=== PATIENT | female | born 1990 | race Hispanic/Latino ===

== ENCOUNTER 2022-04-13 21:00 | Emergency (ER) | payer SELFPAY ==
--- OUTSIDE RECORDS SUMMARY | 2022-04-13 21:05 | XMS REPORT | Continuity of Care Document ---
:1990 Author Organization [facility] t Address [address] [place] [address] Care Team Providers Name Role Phone Hector Zepeda MD, [facility] Primary Care Physician [phone] Ramireddy_S Attending Clinician Unavailable [email or web address] Attending Clinician Unavailable Lemming_S Attending Clinician Unavailable Ramireddy_S Admitting Clinician Unavailable [email or web address]_WAGDNU Admitting Clinician Unavailable Lemming_S Admitting Clinician Unavailable Payers Payer Name Policy Type Policy Number Effective Date Expiration Date S ource [employer] [id number] 2021 INSURANCE - UNITED 00:00:00 HEALTHCARE - CHOICE PLUS (PPO) [facility] [id number] 2020 (PPO) 00:00:00 [facility] [id number] [facility] 4 (PPO) Problems Condition Condition Condition Status Onset Resolution Last Treating Co mments Source Name Details Category Date Date Treatment Clinician Date Anxiety Anxiety Problem Active [facility] 7- Family 00:00: Practic 00 e Acute Acute Problem Active [facility] sinusitis Sinusitis 09-19 Fami ly 00:00: Practic 00 e Vaginitis Vaginitis Problem Active Kian klever 7-26 Family 00:00: Practic 00 e Recurrent Recurrent Problem Active Kian ernst candidiasi Candidiasi 5-07 Fa augustus s of s of 00:00: Practic vagina Vagina 00 e Obesity Obesity Problem Active 2019-02 [facility] 1-25 Family 00:00: Practic 00 e Chronic Chronic Disease Active Methodi midline midline 2-19 st low back low back 00:00: Hospit a pain pain 00 l without without sciatica sciatica Palpitatio Palpitatio Disease Active M ethodi ns ns 3-21 st 00:00: Hospita 00 l Anxiety Anxiety Problem Active [place] state State 8-07 Family 00:00: Practic 00 e Allergies, Adverse Reactions, Alerts Allergy Allergy Status Severity Reaction(s) Onset Inactive Treating Comm ents Source Name Type Date Date Clinician Glucosam Propensi Active Anaphylaxis Soft M ethodi ine ty to 07-[address] adverse 00:00: crawfish Hospita reaction 00 l s to drug Codeine Drug Active Anxiety PT [facility] 00 THIS Center MEDICATIO N IT MAKES HER DEPRESSED Shellfis Drug Active [facility]aphylaxis [facility] 00[facility] Medical ng 00 Center Products Codeine Propensi Active Anxiety PT STATES Met hodi ty to 02-[address] adverse 00:00: TAKING Hospita reaction 00 THIS l s to MEDICATIO drug N IT MAKES HER DEPRESSED Depressio n Shellfis Propensi Active Anaphylaxis M ethodi h ty to 02-27 st Containi adverse 00:00: Hospita ng reaction 00 l Products s to drug CODEINE Allergy Active 2013-02 [facility] PHOSPHAT to 03-22 Family E substanc 00:00: Practic e 00 e Family History Family Member Diagnosis Comments Start Date Stop Date Source Natural father Diabetes [facility] Natural father Alcohol abuse [facility] Natural father Diabetes [facility] Maternal aunt Bipolar disorder [facility] Maternal grandmother Bipolar disorder [facility] Paternal grandmother defects C [facility] Natural brother Asthma [facility] Maternal grandfather Cancer [facility] Maternal grandfather Colon cancer [facility] Maternal grandfather Melanoma [facility] Social History Social Habit Start Date Stop Date Quantity Comments Source Alcohol intake 2017-05-07 2017-05-07 Current Confucianism 00:00:00 00:00:00 non-drinker of Hospital alcohol (finding) Tobacco use and 2016-02-28 2016-02-[address] [facility] kes exposure 00:00:00 00:00:00 Medical Center Sex Assigned At [birth year] Confucianism 00:00:00 00:00:00 Hospital Smoking Status Start Date Stop Date Source Never smoked tobacco Confucianism [facility] Former smoker 2016-02-28 00:00:00 2016-02-28 00:00:00 [facility] Medications Ordered Filled Start Stop Current Ordering Indication Dosage Frequency Signature Comments Components Source Medication Medication Date Date Medication? Clinician (SIG) Name Name Evan Gordon 2020-02 No 1capsul Q4H Evan Tejeda mg-300 mg-300 2-10 e(s) 50 mg-300 Family mg-40 mg mg-40 mg 00:00: mg-40 mg P ractic capsule capsule 00 capsule e Take 1 Take 1 Take 1 capsule capsule capsule every 4 every 4 every 4 hours by hours by hours by oral route oral route oral route as needed. as needed. as needed. Fioricet Jeff Gordon 2020-02 No 1capsul Q4H Evan Tejeda mg-300 mg-300 2-10 e(s) 50 mg-300 Family mg-40 mg mg-40 mg 00:00: mg-40 mg P ractic capsule capsule 00 capsule e Take 1 Take 1 Take 1 capsule capsule capsule every 4 every 4 every 4 hours by hours by hours by oral route oral route oral route as needed. as needed. as needed. Arshoricet Jeff Gordon 2020-02 No 1capsul Q4H Marlinet Nikhil mg-300 mg-300 2-10 e(s) 50 mg-300 Family mg-40 mg mg-40 mg 00:00: mg-40 mg P ractic capsule capsule 00 capsule e Take 1 Take 1 Take 1 capsule capsule capsule every 4 every 4 every 4 hours by hours by hours by oral route oral route oral route as needed. as needed. as needed. Fioricet 50 Arshoricet 50 2020-02 No 1capsul Q4H Evan Tejeda mg-300 mg-300 2-10 e(s) 50 mg-300 Family mg-40 mg mg-40 mg 00:00: mg-40 mg P ractic capsule capsule 00 capsule e Take 1 Take 1 Take 1 capsule capsule capsule every 4 every 4 every 4 hours by hours by hours by oral route oral route oral route as needed. as needed. as needed. Fioricet 50 Fioricet 50 2020-02 No 1capsul Q4H Fioricet [place] mg-300 mg-300 2-10 e(s) 50 mg-300 Family mg-40 mg mg-40 mg 00:00: mg-40 mg P ractic capsule capsule 00 capsule e Take 1 Take 1 Take 1 capsule capsule capsule every 4 every 4 every 4 hours by hours by hours by oral route oral route oral route as needed. as needed. as needed. multivitami Yes 1{tbl} QD Take 1 Me thodi n with 2-[address] minerals 14:11: mouth Hospita tablet 34 daily. l PNV WITH 2016-02 Yes 1{tbl} QD Take 1 [facility] CA,NO.[facility]/IR 1-01 tablet by Christie frausto ON/FA 12:12: mouth Medical ( 38 daily. Center MULTIVITAMI N) Tab albuterol albuterol No 2puff(s Q4H albuterol [place] sulfate HFA sulfate HFA ) sulfate Family 90 90 HFA 90 Practic mcg/actuati mcg/actuati mcg/actuat e on aerosol on aerosol ion inhaler inhaler aerosol Inhale 2 Inhale 2 inhaler puffs every puffs every Inhale 2 4 hours by 4 hours by puffs inhalation inhalation every 4 route. route. hours by inhalation route. alprazolam alprazolam No alprazolam [facility] 0.5 mg 0.5 mg 0.5 mg Family tablet TAKE tablet TAKE tablet Practic ONE-HALF ONE-HALF TAKE e TABLET TO TABLET TO ONE-HALF ONE (1) ONE (1) TABLET TO TABLET BY TABLET BY ONE (1) MOUTH EVERY MOUTH EVERY TABLET BY DAY DAY MOUTH NEEDED FOR NEEDED FOR EVERY DAY ANXIETY ANXIETY NEEDED FOR ANXIETY clotrimazol clotrimazol No clotrimazo [facility] e-betametha e-betametha le-betamet Family sone 1 sone 1 hasone 1 Practic %-0.05 % %-0.05 % %-0.05 % e topical topical topical cream APPLY cream APPLY cream TO THE TO THE APPLY TO AFFECTED AFFECTED THE AND AND AFFECTED SURROUNDING SURROUNDING AND AREAS OF AREAS OF SURROUNDIN SKIN BY SKIN BY G AREAS OF TOPICAL TOPICAL SKIN BY ROUTE 2 ROUTE 2 TOPICAL TIMES PER TIMES PER ROUTE 2 DAY IN THE DAY IN THE TIMES PER MORNING AND MORNING AND DAY IN THE EVENING FOR EVENING FOR MORNING 2 WEEKS 2 WEEKS AND EVENING FOR 2 WEEKS Dulera 200 Dulera 200 No Dulera 200 [facility] mcg-5 mcg-5 mcg-5 Family mcg/actuati mcg/actuati mcg/actuat Practic on HFA on HFA ion HFA e aerosol aerosol aerosol inhaler inhaler inhaler Inhale 2 Inhale 2 Inhale 2 puffs twice puffs twice puffs a day by a day by twice a inhalation inhalation day by route. route. inhalation route. etonogestre etonogestre No etonogestr [facility] l 0.12 l 0.12 el 0.12 Family mg-ethinyl mg-ethinyl mg-ethinyl Practic estradiol estradiol estradiol e 0.015 mg/24 0.015 mg/24 0.015 hr vaginal hr vaginal mg/24 hr ring ring vaginal ring hydroxyzine hydroxyzine No hydroxyzin [facility] HCl 25 mg HCl 25 mg e HCl 25 F amily tablet Take tablet Take mg tablet Practic 1 tablet 3 1 tablet 3 Take 1 e times a day times a day tablet 3 by oral by oral times a route as route as day by needed for needed for oral route 10 days. 10 days. as needed for 10 days. Symbicort Symbicort No 2puff(s BID Symbicort [facility] 160 mcg-4.5 160 mcg-4.5 ) 160 F amily mcg/actuati mcg/actuati mcg-4.5 Practic on HFA on HFA mcg/actuat e aerosol aerosol ion HFA inhaler inhaler aerosol Inhale 2 Inhale 2 inhaler puffs twice puffs twice Inhale 2 a day by a day by puffs inhalation inhalation twice a route. route. day by inhalation route. Tubersol 5 Tubersol 5 No .1mL Q1D Tubersol 5 [facility] tub. tub. tub. Family unit/0.1 mL unit/0.1 mL unit/0.1 Practic intradermal intradermal mL e injection injection intraderma solution solution l Inject 0.1 Inject 0.1 injection mL every mL every solution day by day by Inject 0.1 intradermal intradermal mL every route. route. day by intraderma l route. albuterol albuterol No 2puff(s Q4H albuterol [place] sulfate HFA sulfate HFA ) sulfate Family 90 90 HFA 90 Practic mcg/actuati mcg/actuati mcg/actuat e on aerosol on aerosol ion inhaler inhaler aerosol Inhale 2 Inhale 2 inhaler puffs every puffs every Inhale 2 4 hours by 4 hours by puffs inhalation inhalation every 4 route. route. hours by inhalation route. alprazolam alprazolam No alprazolam [facility] 0.5 mg 0.5 mg 0.5 mg Family tablet TAKE tablet TAKE tablet Practic ONE-HALF ONE-HALF TAKE e TABLET TO TABLET TO ONE-HALF ONE (1) ONE (1) TABLET TO TABLET BY TABLET BY ONE (1) MOUTH EVERY MOUTH EVERY TABLET BY DAY DAY MOUTH NEEDED FOR NEEDED FOR EVERY DAY ANXIETY ANXIETY NEEDED FOR ANXIETY clotrimazol clotrimazol No clotrimazo [facility] e-betametha e-betametha le-betamet Family sone 1 sone 1 hasone 1 Practic %-0.05 % %-0.05 % %-0.05 % e topical topical topical cream APPLY cream APPLY cream TO THE TO THE APPLY TO AFFECTED AFFECTED THE AND AND AFFECTED SURROUNDING SURROUNDING AND AREAS OF AREAS OF SURROUNDIN SKIN BY SKIN BY G AREAS OF TOPICAL TOPICAL SKIN BY ROUTE 2 ROUTE 2 TOPICAL TIMES PER TIMES PER ROUTE 2 DAY IN THE DAY IN THE TIMES PER MORNING AND MORNING AND DAY IN THE EVENING FOR EVENING FOR MORNING 2 WEEKS 2 WEEKS AND EVENING FOR 2 WEEKS Dulera 200 Dulera 200 No Dulera 200 [facility] mcg-5 mcg-5 mcg-5 Family mcg/actuati mcg/actuati mcg/actuat Practic on HFA on HFA ion HFA e aerosol aerosol aerosol inhaler inhaler inhaler Inhale 2 Inhale 2 Inhale 2 puffs twice puffs twice puffs a day by a day by twice a inhalation inhalation day by route. route. inhalation route. etonogestre etonogestre No etonogestr [facility] l 0.12 l 0.12 el 0.12 Family mg-ethinyl mg-ethinyl mg-ethinyl Practic estradiol estradiol estradiol e 0.015 mg/24 0.015 mg/24 0.015 hr vaginal hr vaginal mg/24 hr ring ring vaginal ring hydroxyzine hydroxyzine No hydroxyzin [facility] HCl 25 mg HCl 25 mg e HCl 25 F amily tablet Take tablet Take mg tablet Practic 1 tablet 3 1 tablet 3 Take 1 e times a day times a day tablet 3 by oral by oral times a route as route as day by needed for needed for oral route 10 days. 10 days. as needed for 10 days. Symbicort Symbicort No 2puff(s BID Symbicort [facility] 160 mcg-4.5 160 mcg-4.5 ) 160 F amily mcg/actuati mcg/actuati mcg-4.5 Practic on HFA on HFA mcg/actuat e aerosol aerosol ion HFA inhaler inhaler aerosol Inhale 2 Inhale 2 inhaler puffs twice puffs twice Inhale 2 a day by a day by puffs inhalation inhalation twice a route. route. day by inhalation route. Tubersol 5 Tubersol 5 No .1mL Q1D Tubersol 5 [facility] tub. tub. tub. Family unit/0.1 mL unit/0.1 mL unit/0.1 Practic intradermal intradermal mL e injection injection intraderma solution solution l Inject 0.1 Inject 0.1 injection mL every mL every solution day by day by Inject 0.1 intradermal intradermal mL every route. route. day by intraderma l route. albuterol albuterol No 2puff(s Q4H albuterol [facility] sulfate HFA sulfate HFA ) sulfate Family 90 90 HFA 90 Practic mcg/actuati mcg/actuati mcg/actuat e on aerosol on aerosol ion inhaler inhaler aerosol Inhale 2 Inhale 2 inhaler puffs every puffs every Inhale 2 4 hours by 4 hours by puffs inhalation inhalation every 4 route. route. hours by inhalation route. alprazolam alprazolam No alprazolam [facility] 0.5 mg 0.5 mg 0.5 mg Family tablet TAKE tablet TAKE tablet Practic ONE-HALF ONE-HALF TAKE e TABLET TO TABLET TO ONE-HALF ONE (1) ONE (1) TABLET TO TABLET BY TABLET BY ONE (1) MOUTH EVERY MOUTH EVERY TABLET BY DAY DAY MOUTH NEEDED FOR NEEDED FOR EVERY DAY ANXIETY ANXIETY NEEDED FOR ANXIETY Diflucan Diflucan No 1 Diflucan Kian klever 150 mg 150 mg 150 mg Family tablet Take tablet Take tablet Practic 1 tablet by 1 tablet by Take 1 e oral route oral route tablet by as needed. as needed. oral route as needed. Dulera 200 Dulera 200 No Dulera 200 [facility] mcg-5 mcg-5 mcg-5 Family mcg/actuati mcg/actuati mcg/actuat Practic on HFA on HFA ion HFA e aerosol aerosol aerosol inhaler inhaler inhaler Inhale 2 Inhale 2 Inhale 2 puffs twice puffs twice puffs a day by a day by twice a inhalation inhalation day by route. route. inhalation route. etonogestre etonogestre No etonogestr [facility] l 0.12 l 0.12 el 0.12 Family mg-ethinyl mg-ethinyl mg-ethinyl Practic estradiol estradiol estradiol e 0.015 mg/24 0.015 mg/24 0.015 hr vaginal hr vaginal mg/24 hr ring ring vaginal ring Medrol Medrol No Medrol [place] (Gianni) 4 mg (Gianni) 4 mg (Gainni) 4 mg Family tablets in tablets in tablets in Practic a dose pack a dose pack a dose e use as use as pack use directed directed as directed Symbicort Symbicort No 2puff(s BID Symbicort [facility] 160 mcg-4.5 160 mcg-4.5 ) 160 F amily mcg/actuati mcg/actuati mcg-4.5 Practic on HFA on HFA mcg/actuat e aerosol aerosol ion HFA inhaler inhaler aerosol Inhale 2 Inhale 2 inhaler puffs twice puffs twice Inhale 2 a day by a day by puffs inhalation inhalation twice a route. route. day by inhalation route. albuterol albuterol No 2puff(s Q4H albuterol [place] sulfate HFA sulfate HFA ) sulfate Family 90 90 HFA 90 Practic mcg/actuati mcg/actuati mcg/actuat e on aerosol on aerosol ion inhaler inhaler aerosol Inhale 2 Inhale 2 inhaler puffs every puffs every Inhale 2 4 hours by 4 hours by puffs inhalation inhalation every 4 route as route as hours by needed. needed. inhalation route as needed. alprazolam alprazolam No alprazolam [facility] 0.5 mg 0.5 mg 0.5 mg Family tablet TAKE tablet TAKE tablet Practic ONE-HALF ONE-HALF TAKE e TABLET TO TABLET TO ONE-HALF ONE (1) ONE (1) TABLET TO TABLET BY TABLET BY ONE (1) MOUTH EVERY MOUTH EVERY TABLET BY DAY DAY MOUTH NEEDED FOR NEEDED FOR EVERY DAY ANXIETY ANXIETY NEEDED FOR ANXIETY Bromfed DM Bromfed DM No 10mL TID Bromfed DM [facility] 2 mg-30 2 mg-30 2 mg-30 Family mg-10 mg/5 mg-10 mg/5 mg-10 mg/5 Practic mL oral mL oral mL oral e syrup Take syrup Take syrup Take 10 mL 3 10 mL 3 10 mL 3 times a day times a day times a by oral by oral day by route as route as oral route needed for needed for as needed 7 days. 7 days. for 7 days. Diflucan Diflucan No 1 Diflucan Kian klever 150 mg 150 mg 150 mg Family tablet Take tablet Take tablet Practic 1 tablet by 1 tablet by Take 1 e oral route oral route tablet by as needed. as needed. oral route as needed. Dulera 200 Dulera 200 No Dulera 200 [facility] mcg-5 mcg-5 mcg-5 Family mcg/actuati mcg/actuati mcg/actuat Practic on HFA on HFA ion HFA e aerosol aerosol aerosol inhaler inhaler inhaler Inhale 2 Inhale 2 Inhale 2 puffs twice puffs twice puffs a day by a day by twice a inhalation inhalation day by route. route. inhalation route. etonogestre etonogestre No etonogestr [facility] l 0.12 l 0.12 el 0.12 Family mg-ethinyl mg-ethinyl mg-ethinyl Practic estradiol estradiol estradiol e 0.015 mg/24 0.015 mg/24 0.015 hr vaginal hr vaginal mg/24 hr ring ring vaginal ring fluticasone fluticasone No 1spray( Q1D fluticason [place] propionate propionate s) e Fam siddhartha 50 50 propionate Practic mcg/actuati mcg/actuati 50 e on nasal on nasal mcg/actuat spray,suspe spray,suspe ion nasal nsion [place] nsion [place] spray,susp 1 spray 1 spray ension every day every day [place] 1 by by spray intranasal intranasal every day route for route for by 14 days. 14 days. intranasal route for 14 days. Symbicort Symbicort No 2puff(s BID Symbicort [facility] 160 mcg-4.5 160 mcg-4.5 ) 160 F amily mcg/actuati mcg/actuati mcg-4.5 Practic on HFA on HFA mcg/actuat e aerosol aerosol ion HFA inhaler inhaler aerosol Inhale 2 Inhale 2 inhaler puffs twice puffs twice Inhale 2 a day by a day by puffs inhalation inhalation twice a route. route. day by inhalation route. albuterol albuterol No 2puff(s Q4H albuterol [place] sulfate HFA sulfate HFA ) sulfate Family 90 90 HFA 90 Practic mcg/actuati mcg/actuati mcg/actuat e on aerosol on aerosol ion inhaler inhaler aerosol Inhale 2 Inhale 2 inhaler puffs every puffs every Inhale 2 4 hours by 4 hours by puffs inhalation inhalation every 4 route as route as hours by needed. needed. inhalation route as needed. alprazolam alprazolam No alprazolam [facility] 0.5 mg 0.5 mg 0.5 mg Family tablet TAKE tablet TAKE tablet Practic ONE-HALF ONE-HALF TAKE e TABLET TO TABLET TO ONE-HALF ONE (1) ONE (1) TABLET TO TABLET BY TABLET BY ONE (1) MOUTH EVERY MOUTH EVERY TABLET BY DAY DAY MOUTH NEEDED FOR NEEDED FOR EVERY DAY ANXIETY ANXIETY NEEDED FOR ANXIETY Breztri Breztri No 2puff(s BID Breztri Kian klever Aerosphere Aerosphere ) Aerosphere Family 160 160 160 Practic mcg-9mcg-4. mcg-9mcg-4. mcg-9mcg-4 e 8mcg/actuat 8mcg/actuat .8mcg/actu ion HFA ion HFA ation HFA aerosol aerosol aerosol inhaler inhaler inhaler Inhale 2 Inhale 2 Inhale 2 puffs twice puffs twice puffs a day by a day by twice a inhalation inhalation day by route. route. inhalation route. Dulera 200 Dulera 200 No Dulera 200 [facility] mcg-5 mcg-5 mcg-5 Family mcg/actuati mcg/actuati mcg/actuat Practic on HFA on HFA ion HFA e aerosol aerosol aerosol inhaler inhaler inhaler Inhale 2 Inhale 2 Inhale 2 puffs twice puffs twice puffs a day by a day by twice a inhalation inhalation day by route. route. inhalation route. EpiPen EpiPen No 1auto(s EpiPen [facility] e 2-Gianni 0.3 2-Gianni 0.3 ) 2-Gianni 0.3 Family mg/0.3 mL mg/0.3 mL mg/0.3 mL Practic injection, injection, injection, e auto-inject auto-inject auto-injec or Take 1 or Take 1 tor Take 1 auto by auto by auto by injection injection injection route as route as route as needed. needed. needed. etonogestre etonogestre No etonogestr [facility] l 0.12 l 0.12 el 0.12 [facility] mg-ethinyl mg-ethinyl mg-ethinyl Practic estradiol estradiol estradiol e 0.015 mg/24 0.015 mg/24 0.015 hr vaginal hr vaginal mg/24 hr ring ring vaginal ring fluticasone fluticasone No 1spray( Q1D fluticason [place] propionate propionate s) e Fam siddhartha 50 50 propionate Practic mcg/actuati mcg/actuati 50 e on nasal on nasal mcg/actuat spray,suspe spray,suspe ion nasal nsion [place] nsion [place] spray,susp 1 spray 1 spray ension every day every day [place] 1 by by spray intranasal intranasal every day route for route for by 14 days. 14 days. intranasal route for 14 days. montelukast montelukast No 1 Q1D montelukas [facility] 10 mg 10 mg t 10 mg Family tablet Take tablet Take tablet Practic 1 tablet 1 tablet Take 1 e every day every day tablet by oral by oral every day route for route for by oral 30 days. 30 days. route for 30 days. prednisone prednisone No 2 Q1D prednisone [facility] 20 mg 20 mg 20 mg Family tablet Take tablet Take tablet Practic 2 tablets 2 tablets Take 2 e every day every day tablets by oral by oral every day route in route in by oral the morning the morning route in for 5 days. for 5 days. the morning for 5 days. Symbicort Symbicort No 2puff(s BID Symbicort [facility] 160 mcg-4.5 160 mcg-4.5 ) 160 F amily mcg/actuati mcg/actuati mcg-4.5 Practic on HFA on HFA mcg/actuat e aerosol aerosol ion HFA inhaler inhaler aerosol Inhale 2 Inhale 2 inhaler puffs twice puffs twice Inhale 2 a day by a day by puffs inhalation inhalation twice a route. route. day by inhalation route. Immunizations Ordered Immunization Filled Immunization Date Status Commen ts Source Name Name influenza, influenza, 2021-11-01 Completed [facility] injectable, injectable, 11:14:40 Practice quadrivalent, quadrivalent, preservative free preservative free influenza, influenza, 2021-11-01 Completed [facility] injectable, injectable, 11:14:40 Practice quadrivalent, quadrivalent, preservative free preservative free influenza, influenza, 2021-11-01 Completed [facility] injectable, injectable, 11:14:40 Practice quadrivalent, quadrivalent, preservative free preservative free influenza, influenza, 2021-11-01 Completed [facility] injectable, injectable, 11:14:40 Practice quadrivalent, quadrivalent, preservative free preservative free influenza, influenza, 2021-11-01 Completed [facility] injectable, injectable, 11:14:40 Practice quadrivalent, quadrivalent, preservative free preservative free COVID-19, mRNA, COVID-19, mRNA, 2020-12-21 Completed [facility] Family LNP-S, PF, 30 LNP-S, PF, 30 00:00:00 Practice mcg/0.3 mL dose mcg/0.3 mL dose (Pfizer-BioNTech) - (Pfizer-BioNTech) - ML ML influenza, influenza, 2020-11-09 Completed [facility] injectable, injectable, 00:00:00 Practice quadrivalent quadrivalent influenza, influenza, 2020-11-09 Completed [facility] injectable, injectable, 00:00:00 Practice quadrivalent quadrivalent influenza, influenza, 2020-11-09 Completed [facility] injectable, injectable, 00:00:00 Practice quadrivalent quadrivalent influenza, influenza, 2020-11-09 Completed [facility] injectable, injectable, 00:00:00 Practice quadrivalent quadrivalent influenza, influenza, 2020-11-09 Completed [facility] injectable, injectable, 00:00:00 Practice quadrivalent quadrivalent COVID-19, mRNA, COVID-19, mRNA, 2020-09-14 Completed [facility] age Family LNP-S, PF, 30 LNP-S, PF, 30 00:00:00 Practice mcg/0.3 mL dose mcg/0.3 mL dose (Pfizer-BioNTech) (Pfizer-BioNTech) COVID-19, mRNA, COVID-19, mRNA, 2020-09-14 Completed [facility] age Family LNP-S, PF, 30 LNP-S, PF, 30 00:00:00 Practice mcg/0.3 mL dose mcg/0.3 mL dose (Pfizer-BioNTech) (Pfizer-BioNTech) COVID-19, mRNA, COVID-19, mRNA, 2020-09-14 Completed [facility] Family LNP-S, PF, 30 LNP-S, PF, 30 00:00:00 Practice mcg/0.3 mL dose mcg/0.3 mL dose (Pfizer-BioNTech) (Pfizer-BioNTech) COVID-19, mRNA, COVID-19, mRNA, 2020-09-14 Completed [facility] Family LNP-S, PF, 30 LNP-S, PF, 30 00:00:00 Practice mcg/0.3 mL dose mcg/0.3 mL dose (Pfizer-BioNTech) (Pfizer-BioNTech) COVID-19, mRNA, COVID-19, mRNA, 2020-09-14 Completed [facility] LNP-S, PF, 30 LNP-S, PF, 30 00:00:00 Practice mcg/0.3 mL dose mcg/0.3 mL dose (Pfizer-BioNTech) (Center'd-BioNTech) COVID-19 COVID-19 2020-03-24 Completed [facility] (SARS-COV-2) (SARS-COV-2) 00:00:00 Practice vaccine, unspecified vaccine, unspecified COVID-19 COVID-19 2020-03-24 Completed [facility] Family (SARS-COV-2) (SARS-COV-2) 00:00:00 Practice vaccine, unspecified vaccine, unspecified COVID-19 COVID-19 2020-03-24 Completed [facility] Family (SARS-COV-2) (SARS-COV-2) 00:00:00 Practice vaccine, unspecified vaccine, unspecified COVID-19 COVID-19 2020-03-24 Completed [facility] (SARS-COV-2) (SARS-COV-2) 00:00:00 Practice vaccine, unspecified vaccine, unspecified COVID-19, mRNA, COVID-19, mRNA, 2020-03-24 Completed [facility] LNP-S, PF, 30 LNP-S, PF, 30 00:00:00 Practice mcg/0.3 mL dose mcg/0.3 mL dose (Pfizer-BioNTech) - (Center'd-BioNTech) - ML ML COVID-19 COVID-19 2020-03-24 Completed [facility] (SARS-COV-2) (SARS-COV-2) 00:00:00 Practice vaccine, unspecified vaccine, unspecified COVID-19 COVID-19 2020-03-03 Completed [facility] (SARS-COV-2) (SARS-COV-2) 00:00:00 Practice vaccine, unspecified vaccine, unspecified COVID-19 COVID-19 2020-03-03 Completed [facility] (SARS-COV-2) (SARS-COV-2) 00:00:00 Practice vaccine, unspecified vaccine, unspecified COVID-19 COVID-19 2020-03-03 Completed [facility] (SARS-COV-2) (SARS-COV-2) 00:00:00 Practice vaccine, unspecified vaccine, unspecified COVID-19 COVID-19 2020-03-03 Completed [facility] (SARS-COV-2) (SARS-COV-2) 00:00:00 Practice vaccine, unspecified vaccine, unspecified COVID-19 COVID-19 2020-03-03 Completed [facility] (SARS-COV-2) (SARS-COV-2) 00:00:00 Practice vaccine, unspecified vaccine, unspecified COVID-19, mRNA, COVID-19, mRNA, 2020-03-02 Completed [facility] LNP-S, PF, 30 LNP-S, PF, 30 00:00:00 Practice mcg/0.3 mL dose mcg/0.3 mL dose (Pfizer-BioNTech) - (Center'd-BioNTech) - ML ML influenza, influenza, 2019-11-05 Completed [facility] injectable, injectable, 10:14:38 Practice quadrivalent, quadrivalent, preservative free preservative free influenza, influenza, 2019-11-05 Completed [facility] injectable, injectable, 10:14:38 Practice quadrivalent, quadrivalent, preservative free preservative free influenza, influenza, 2019-11-05 Completed [facility] Family injectable, injectable, 10:14:38 Practice quadrivalent, quadrivalent, preservative free preservative free influenza, influenza, 2019-11-05 Completed [facility] Family injectable, injectable, 10:14:38 Practice quadrivalent, quadrivalent, preservative free preservative free influenza, influenza, 2019-11-05 Completed [facility] Family injectable, injectable, 10:14:38 Practice quadrivalent, quadrivalent, preservative free preservative free Tdap 2016-06-05 Completed [facility] Tdap Tdap 2013-10-28 Completed [facility] 00:00:00 Practice Tdap Tdap 2013-10-28 Completed [facility] Family 00:00:00 Practice Tdap Tdap 2013-10-28 Completed [facility] Family 00:00:00 Practice Tdap Tdap 2013-10-28 Completed [facility] Family 00:00:00 Practice Tdap Tdap 2013-10-28 Completed [facility] Family 00:00:00 Practice Vital Signs Vital Name Observation Time Observation Value Comments Source BP Diastolic 2022-04-11 00:00:00 86 mm[Hg] [facility] Practice Height 2022-04-11 00:00:00 58 [in_i] [facility] BMI (Body Mass 2022-04-11 00:00:00 31.6 kg/m2 [facility] BP Systolic 2022-04-11 00:00:00 116 mm[Hg] [facility] Body Weight 2022-04-11 00:00:00 151 [lb_av] [facility] Height 2021-12-26 00:00:00 58 [in_i] [facility] BMI (Body Mass 2021-12-26 00:00:00 30.3 kg/m2 [facility] Body Weight 2021-12-26 00:00:00 145 [lb_av] [facility] Height 2021-10-31 00:00:00 58 [in_i] [facility] Height 2021-09-19 00:00:00 58 [in_i] [facility] BMI (Body Mass 2021-09-19 00:00:00 31.3 kg/m2 [facility] Body Weight 2021-09-19 00:00:00 150 [lb_av] [facility] BP Diastolic 2021-09-17 00:00:00 82 mm[Hg] [facility] Height 2021-09-17 00:00:00 58 [in_i] [facility] BMI (Body Mass 2021-09-17 00:00:00 31.3 kg/m2 [facility] BP Systolic 2021-09-17 00:00:00 122 mm[Hg] [facility] Body Weight 2021-09-17 00:00:00 150 [lb_av] [facility] Height 2021-07-18 00:00:00 58 [in_i] [facility] BMI (Body Mass 2021-07-18 00:00:00 30.3 kg/m2 [facility] Body Weight 2021-07-18 00:00:00 145 [lb_av] [facility] Height 2021-07-01 00:00:00 58 [in_i] [facility] BMI (Body Mass 2021-07-01 00:00:00 29.3 kg/m2 [facility] Body Weight 2021-07-01 00:00:00 140 [lb_av] [facility] Height 2021-06-01 00:00:00 58 [in_i] [facility] BMI (Body Mass 2021-06-01 00:00:00 29.3 kg/m2 [facility] Body Weight 2021-06-01 00:00:00 140 [lb_av] [facility] Height 2021-05-05 00:00:00 58 [in_i] [facility] Height 2021-04-06 00:00:00 58 [in_i] [facility] BMI (Body Mass 2021-04-06 00:00:00 29.3 kg/m2 [facility] Body Weight 2021-04-06 00:00:00 140 [lb_av] [facility] Height 2020-10-27 00:00:00 58 [in_i] [facility] BP Diastolic 2020-07-01 00:00:00 88 mm[Hg] [facility] Height 2020-07-01 00:00:00 58 [in_i] [facility] BP Systolic 2020-07-01 00:00:00 138 mm[Hg] [facility] BP Diastolic 2020-06-21 00:00:00 81 mm[Hg] [facility] Height 2020-06-21 00:00:00 58 [in_i] [facility] BMI (Body Mass 2020-06-21 00:00:00 30.3 kg/m2 [facility] BP Systolic 2020-06-21 00:00:00 120 mm[Hg] [facility] Body Weight 2020-06-21 00:00:00 145 [lb_av] [facility] Height 2020-05-21 00:00:00 58 [in_i] [facility] BMI (Body Mass 2020-05-21 00:00:00 30.3 kg/m2 [facility] Body Weight 2020-05-21 00:00:00 145 [lb_av] [facility] Height 2020-05-06 00:00:00 58 [in_i] [facility] BMI (Body Mass 2020-05-06 00:00:00 30.3 kg/m2 [facility] Body Weight 2020-05-06 00:00:00 145 [lb_av] [facility] BP Diastolic 2020-03-21 00:00:00 70 mm[Hg] [facility] Height 2020-03-21 00:00:00 58 [in_i] [facility] BMI (Body Mass 2020-03-21 00:00:00 31.4 kg/m2 [facility] BP Systolic 2020-03-21 00:00:00 114 mm[Hg] [facility] Body Weight 2020-03-21 00:00:00 150.2 [lb_av] [facility] Height 2020-01-20 00:00:00 58 [in_i] [facility] BMI (Body Mass 2020-01-20 00:00:00 30.3 kg/m2 [facility] Body Weight 2020-01-20 00:00:00 145 [lb_av] [facility] BP Diastolic 2019-11-05 00:00:00 80 mm[Hg] [facility] Height 2019-11-05 00:00:00 58 [in_i] [facility] BMI (Body Mass 2019-11-05 00:00:00 33.2 kg/m2 [facility] BP Systolic 2019-11-05 00:00:00 120 mm[Hg] [facility] Body Weight 2019-11-05 00:00:00 159 [lb_av] [facility] BP Diastolic 2019-03-12 00:00:00 80 mm[Hg] [facility] Height 2019-03-12 00:00:00 58 [in_i] [facility] BMI (Body Mass 2019-03-12 00:00:00 35.1 kg/m2 [facility] BP Systolic 2019-03-12 00:00:00 120 mm[Hg] [facility] Body Weight 2019-03-12 00:00:00 167.8 [lb_av] [facility] BP Diastolic 2017-05-28 00:00:00 80 mm[Hg] [facility] Height 2017-05-28 00:00:00 58 [in_i] [facility] BMI (Body Mass 2017-05-28 00:00:00 31.9 kg/m2 [facility] BP Systolic 2017-05-28 00:00:00 128 mm[Hg] [facility] Body Weight 2017-05-28 00:00:00 152.6 [lb_av] [facility] BP Diastolic 2016-02-09 00:00:00 70 mm[Hg] [facility] Height 2016-02-09 00:00:00 58 [in_i] [facility] BMI (Body Mass 2016-02-09 00:00:00 34 kg/m2 [facility] BP Systolic 2016-02-09 00:00:00 116 mm[Hg] [facility] Body Weight 2016-02-09 00:00:00 162.7 [lb_av] [facility] BP Diastolic 2016-01-21 00:00:00 62 mm[Hg] [facility] Height 2016-01-21 00:00:00 58 [in_i] [facility] BMI (Body Mass 2016-01-21 00:00:00 33.1 kg/m2 [facility] BP Systolic 2016-01-21 00:00:00 102 mm[Hg] [facility] Body Weight 2016-01-21 00:00:00 158.4 [lb_av] [facility] BP Diastolic 2015-12-31 00:00:00 76 mm[Hg] [facility] Height 2015-12-31 00:00:00 58 [in_i] [facility] BMI (Body Mass 2015-12-31 00:00:00 33.2 kg/m2 [facility] BP Systolic 2015-12-31 00:00:00 126 mm[Hg] [facility] Body Weight 2015-12-31 00:00:00 159 [lb_av] [facility] BP Diastolic 2015-07-14 00:00:00 80 mm[Hg] [facility] Height 2015-07-14 00:00:00 58 [in_i] [facility] BMI (Body Mass 2015-07-14 00:00:00 31.14 kg/m2 [facility] BP Systolic 2015-07-14 00:00:00 112 mm[Hg] [facility] Body Weight 2015-07-14 00:00:00 149 [lb_av] [facility] BP Diastolic 2015-06-15 00:00:00 80 mm[Hg] [facility] Height 2015-06-15 00:00:00 58 [in_i] [facility] BMI (Body Mass 2015-06-15 00:00:00 31.68 kg/m2 [facility] BP Systolic 2015-06-15 00:00:00 110 mm[Hg] [facility] Body Weight 2015-06-15 00:00:00 151.6 [lb_av] [facility] BP Diastolic 2014-10-14 00:00:00 84 mm[Hg] [facility] Height 2014-10-14 00:00:00 58 [in_i] [facility] BMI (Body Mass 2014-10-14 00:00:00 31.14 kg/m2 [facility] BP Systolic 2014-10-14 00:00:00 132 mm[Hg] [facility] Body Weight 2014-10-14 00:00:00 149 [lb_av] [facility] BP Diastolic 2014-02-05 00:00:00 70 mm[Hg] [facility] Height 2014-02-05 00:00:00 58 [in_i] [facility] BMI (Body Mass 2014-02-05 00:00:00 28.88 kg/m2 [facility] BP Systolic 2014-02-05 00:00:00 110 mm[Hg] [facility] Body Weight 2014-02-05 00:00:00 138.2 [lb_av] [facility] BP Diastolic 2014-01-20 00:00:00 78 mm[Hg] [facility] Height 2014-01-20 00:00:00 58 [in_i] [facility] BMI (Body Mass 2014-01-20 00:00:00 29.89 kg/m2 [facility] BP Systolic 2014-01-20 00:00:00 120 mm[Hg] [facility] Body Weight 2014-01-20 00:00:00 143 [lb_av] [facility] BP Diastolic 2013-12-22 00:00:00 78 mm[Hg] [facility] Height 2013-12-22 00:00:00 58 [in_i] [facility] BMI (Body Mass 2013-12-22 00:00:00 29.72 kg/m2 [facility] BP Systolic 2013-12-22 00:00:00 118 mm[Hg] [facility] Body Weight 2013-12-22 00:00:00 142.2 [lb_av] [facility] BP Diastolic 2013-10-28 00:00:00 79 mm[Hg] [facility] Height 2013-10-28 00:00:00 58 [in_i] [facility] BMI (Body Mass 2013-10-28 00:00:00 29.76 kg/m2 [facility] BP Systolic 2013-10-28 00:00:00 125 mm[Hg] [facility] Body Weight 2013-10-28 00:00:00 142.4 [lb_av] [facility] Height 2011-12-31 00:00:00 58 [in_i] [facility] BMI (Body Mass 2011-12-31 00:00:00 28.84 kg/m2 [facility] Body Weight 2011-12-31 00:00:00 138 [lb_av] [facility] BP Diastolic 2011-12-31 00:00:00 88 mm[Hg] [facility] BP Systolic 2011-12-31 00:00:00 123 mm[Hg] [facility] BP Diastolic 2011-10-02 00:00:00 78 mm[Hg] [facility] Height 2011-10-02 00:00:00 58 [in_i] [facility] BMI (Body Mass 2011-10-02 00:00:00 29.67 kg/m2 [facility] BP Systolic 2011-10-02 00:00:00 118 mm[Hg] [facility] Body Weight 2011-10-02 00:00:00 142 [lb_av] [facility] Procedures Procedure Date / Time Performed Performing Clinician [facility] e BREATHING CAPACITY TEST 2022-04-11 00:00:00 [facility] X-RAY OF SHOULDER 2 2020-07-01 00:00:00 [facility] Family VIEW Practice X-RAY OF CLAVICLE 2020-07-01 00:00:00 [facility] Practice X-RAY CERVICAL SPINE 2 2020-07-01 00:00:00 [facility] [address], sinuses, w/o 2020-05-06 00:00:00 [facility] contrast Practice CT, sinuses, w/o 2020-01-20 00:00:00 [facility] contrast Practice Caesarean Section 2016-02-26 00:00:00 [facility] Extraction of [place] [facility] Tooth Practice Plan of Care Planned Activity Planned Date Details Comments Source Future Scheduled Test 2022-04-11 COVID-19 VACCINE [facility] 08:39:38 (#1) [code = COVID-19 VACCINE (#1)] Future Scheduled Test 2022-04-11 Screening for [facility] 08:39:38 malignant neoplasm of cervix (procedure) [code = 825569968] Future Scheduled Test 2022-04-11 INFLUENZA VACCINE [facility] 08:39:38 [code = INFLUENZA VACCINE] Diagnostic Test 2022-04-11 D-dimer, quant, [facility] vero Pending 00:00:00 plasma [code = Practice D-dimer, quant, plasma] Encounters Start End Encounter Admission Attending Care Care Encounter Source Date/Time Date/Time Type Type Clinicians Facility Department ID 2022-04-11 2022-04-11 Outpatient Ramireddy_S VFP VFP 800 [facility] 00:00:00 00:00:00 0215 Family Practic e 2022-04-11 2022-04-11 Rehana VFP [place] - [id number] V ill[place] 00:00:00 00:00:00 MD Nina: [facility] 9[address] [facility] e [address], [facility] [address] , Ph. 2022-03-22 2022-03-22 Outpatient Ramireddy_S VFP VFP 800 [facility] 00:00:00 00:00:00 0126 Family Practic e 2022-03-22 2022-03-22 Outpatient Green_T_WAG VFP VFP 800 [facility] 00:00:00 00:00:00 DNU 0206 Family Practic e 2022-03-22 2022-03-22 Outpatient Ramireddy_S VFP VFP 800 [facility] 00:00:00 00:00:00 0214 Family Practic e 2022-03-01 2022-03-01 Hermelinda VFP [place] - [id number] [place] 00:00:00 00:00:00 [facility] siddhartha Brito, Medical - Prac tic MD: [id number] [place] Tad OHARA_SMITH_[facility] [address], [place] [address] , Ph. 2022-02-26 2022-02-26 Outpatient Ramireddy_S VFP VFP 800 [facility] 00:00:00 00:00:00 0105 Family Practic e 2022-02-26 2022-02-26 Outpatient Ramireddy_S VFP VFP 800 [facility] 00:00:00 00:00:00 0102 Family Practic e 2022-02-26 2022-02-26 Outpatient Ramireddy_S VFP VFP 800 [facility] 00:00:00 00:00:00 0104 Family Practic e 2022-02-16 2022-02-16 Mary VFP [place] - [id number] [place] 00:00:00 00:00:00 [facility] Noel, CUSTOMER SUCCESS ADVOCATE: Medical - Pra ctic [address] [place] - [address] MAYDA_SMITH_[facility] ([facility]) [address] , Ph. 2022-01-26 2022-01-26 Outpatient Ramireddy_S VFP VFP 800 [facility] 00:00:00 00:00:00 1223 Family Practic e 2021-12-26 2021-12-26 Outpatient Green_T_WAG VFP VFP 800 [facility] 00:00:00 00:00:00 DNU 1101 Family Practic e 2021-12-26 2021-12-26 Rehana VFP [place] - [id number] V illage 00:00:00 00:00:00 MD Nina: [facility] 9055 [place] Medical - Prac tic [facility], [place] - e [address], VM_HOU_Marinao Anthony [facility] [address] , Ph. 2021-11-25 2021-11-25 Outpatient Ramireddy_S VFP VFP 800 [facility] 00:00:00 00:00:00 1001 Family Practic e 2021-11-23 2021-11-23 Outpatient Green_T_WAG VFP VFP 800 [facility] 00:00:00 00:00:00 DNU 0929 Family Practic e 2021-11-06 2021-11-06 Outpatient Ramireddy_S VFP VFP 800 [facility] 00:00:00 00:00:00 0912 Family Practic e 2021-11-03 2021-11-03 Outpatient Ramireddy_S VFP VFP 800 [facility] 00:00:00 00:00:00 0909 Family Practic e 2021-11-03 2021-11-03 Brian VFP [place] - [id number] V illage 00:00:00 00:00:00 Seng [facility] Family CUSTOMER SUCCESS ADVOCATE: 8810 Medical - Pract ic Darrick OHARA_SMITH_[address], od ([facility]) [place] [address] , Ph. 2021-11-01 2021-11-01 Outpatient Ramireddy_S VFP VFP 800 2021 [facility] 00:00:00 00:00:00 0907 Family Practic e 2021-11-01 2021-11-01 Silvina VFP [place] - [id number] V illage 00:00:00 00:00:00 [facility] Darian, Medical - Pract ic PA: 8810 MAYDA_HOU_Inwmarialuisa [address] od ([facility]) [place] [address] , Ph. 2021-10-31 2021-10-31 Sweeya Ramireddy_S VFP [place] - 2021 [facility] 00:00:00 00:00:00 [place] [facility] 0906 Family Hernández, [facility] ct MD: 9055 VM_HOU_Memo joselo [place] [facility], [address], [place] [address] , Ph. 2021-10-31 2021-10-31 Sweeya VFP [place] - [id number] V illage 00:00:00 00:00:00 [facility] Betty [facility] ct MD: 9055 VM_HOU_Memo joselo [place] [facility], [address], [place] [address] , Ph. 2021-10-27 2021-10-27 Outpatient Green_T_WAG VFP VFP [facility] 00:00:00 00:00:00 [facility] 0902 Family Practic e 2021-10-23 2021-10-23 Outpatient Ramireddy_S VFP VFP 800 [facility] 00:00:00 00:00:00 0829 Family Practic e 2021-09-19 2021-09-19 Luis Manuel Green_T_WAG VFP [place] - 2021 [facility] 00:00:00 00:00:00 [facility] Eulalio Marks, Medical - Pract tawanda MD: [id number] VM_HOU_Cypr e [place] Daniel[facility]ALTHTamia Caceres, [place] [address] , Ph. 2021-09-17 2021-09-17 Nathaly N Ramireddy_S VFP [place] - 2021 [facility] 00:00:00 00:00:00 Anthony CUSTOMER SUCCESS ADVOCATE: [facility] 0724 [facility] [address] Medical - Practi c [place] VM_HOU_Cypr e [address], ([facility]) [place] [address] , Ph. 2021-09-16 2021-09-16 Outpatient Ramireddy_S VFP VFP [facility] 05:37:00 05:37:00 0723 Family Practic e 2021-07-18 2021-07-18 Liberty Cruz_Jason_[facility] VFP 2021 [facility] 00:00:00 00:00:00 MADDY Mann [facility] 0524 Famil y CUSTOMER SUCCESS ADVOCATE: [id number] Medical - Prac anne-mar[address] VM_HOU_Cypr e [facility]) [address] , Ph. 2021-07-01 2021-07-01 Mary Walker_YOUNG VFP [place] 2021 [facility] 00:00:00 00:00:00 Ashli [facility] 0507 Family [place], CUSTOMER SUCCESS ADVOCATE: Medical - Pra ctic [address] VM_HOU_Cypr e Shelton Winters, [facility] [address] , Ph. 2021-06-02 2021-06-02 Outpatient Ramireddy_S VFP VFP [facility] 08:27:00 08:27:00 0408 Family Practic e 2021-06-01 2021-06-01 Liberty Ramireddy_S VFP 2021 [facility] 00:00:00 00:00:00 Johnathan [facility] 0407 Famil y CUSTOMER SUCCESS ADVOCATE: 703[address] Medical - Prac tic [facility] VM_HOU_Cyndy [facility] ([place] [address] , Ph. 2021-05-05 2021-05-05 Liberty Walker_[facility] VFP 2021 [facility] 00:00:00 00:00:00 [facility] Famil y CUSTOMER SUCCESS ADVOCATE: [id number] Medical - Prac tic [facility] VM_HOU_Cyndy josue [facility] ([place] [address] , Ph. 2021-04-07 2021-04-07 Outpatient Ramireddy_S VFP VFP [facility] 05:57:00 05:57:00 0211 Family Practic e 2021-04-06 2021-04-06 Liberty Ramireddy_S VFP 2021 [facility] 00:00:00 00:00:00 Johnathan, [facility] 0210 Famil y CUSTOMER SUCCESS ADVOCATE: [id number] Medical - [facility] tic Anais MAYDA_HOU_Cyndy e [address] ([facility]) [place] [address] , Ph. 2020-11-02 2020-11-02 Outpatient Ramireddy_S VFP VFP 800 [facility] 03:41:00 03:41:00 0908 Family Practic e 2020-10-27 2020-10-27 Amina Ramireddy_S VFP 2020 [facility] 00:00:00 00:00:00 [facility] 0902 Famil y El-Diqran, [facility] PA: 9055 VM_HOU_Memo e [place] [facility], [address] [address] , Ph. 2020-08-02 2020-08-02 Outpatient Green_T_WAG VFP VFP [facility] 02:57:00 02:57:00 0608 Family Practic e 2020-07-06 2020-07-06 Outpatient Ramireddy_S VFP VFP [facility] 11:10:00 11:10:00 0512 Family Practic e 2020-07-01 2020-07-01 Amina Ramireddy_S VFP 2020 [facility] 00:00:00 00:00:00 [facility] 0507 Famil y El-Diqran, [facility] PA: 9055 VM_HOU_Memo e [place] [facility], [address], [place] [address] , Ph. 2020-06-23 2020-06-23 Outpatient Green_T_WAG VFP VFP [facility] 03:49:00 03:49:00 0429 Family Practic e 2020-06-21 2020-06-21 Amber Le Green_T_WAG VFP 2020 [facility] 00:00:00 00:00:00 [facility] 0427 Famil y MD: 8810 Medical - Pract ic Darrick VM_HOU_Instalin josue Dr od ([facility]) [place] [address] , Ph. 2020-06-20 2020-06-20 Outpatient Green_T_WAG VFP VFP 800 [facility] 12:12:00 12:12:00 0426 Family Practic e 2020-06-18 2020-06-18 Outpatient Ramireddy_S VFP VFP 800 [facility] 10:55:00 10:55:00 0424 Family Practic e 2020-05-26 2020-05-26 Outpatient Ramireddy_S VFP VFP [facility] 04:12:00 04:12:00 0401 Family Practic e 2020-05-21 2020-05-21 Porchae B Green_T_WAG VFP [facility] 8001 [facility]:00:00 [facility] Famil y CUSTOMER SUCCESS ADVOCATE: 6122 Medical - Pract ic [place] VM_HOU_East [place] [address], ([facility]) [place] [address] , Ph. 2020-05-13 2020-05-13 Outpatient Ramireddy_S VFP VFP [facility] 02:15:00 02:15:00 0319 Family Practic e 2020-05-06 2020-05-06 Nathaly N Green_T_WAG VFP [facility] 00:00:00 00:00:00 Anthony, CUSTOMER SUCCESS ADVOCATE: [place] [id number] [facility] [address] Medical - Practi c [place] VM_HOU_Cypr [address], ([facility]) [place] [address] , Ph. 2020-03-30 2020-03-30 Outpatient Ramireddy_S VFP VFP [facility] 01:43:00 01:43:00 0203 Family Practic e 2020-03-24 2020-03-24 Outpatient [place]_S VFP VFP [facility] 10:35:00 10:35:00 0128 Family Practic e 2020-03-21 2020-03-21 Amina [place] VFP [place] - [phone] 21 [place] 00:00:00 00:00:00 [facility] 0125 Famil y Cesar-January, Medical - Pra ctic PA: 9055 VM_HOU_Memo e [place] [facility] [place] [address] , Ph. 2020-02-06 2020-02-06 Outpatient [place]_S VFP VFP [facility] 10:09:00 10:09:00 1212 Family Practic e 2020-01-26 2020-01-26 Outpatient [place]_S VFP VFP [facility] 12:17:00 12:17:00 1201 Family Practic e 2020-01-22 2020-01-22 Outpatient [place]_S VFP VFP [facility] 01:59:00 01:59:00 1127 Family Practic e 2020-01-20 2020-01-20 Susana [place]_S VFP [place] - [phone] 20 Village 00:00:00 00:00:00 [facility] 1125 Tino morales, CUSTOMER SUCCESS ADVOCATE: Medical - Prac tic 9055 [place] OHARA_HOU_Memo [address] [address] , Ph. 2019-11-09 2019-11-09 Outpatient [place]_S VFP VFP [facility] 01:23:00 01:23:00 0914 Family Practic e 2019-11-05 2019-11-05 [place] V[place] - [phone] 20 [place] 00:00:00 00:00:00 Clover, [facility] 0910 Famil y PA: 9055 Medical - Pract ic [place] OHARA_HOU_Memo e [address] [address] , Ph. 2019-08-26 2019-08-26 Outpatient [place]_S VFP VFP [facility] [facility] 11:20:00 11:20:00 0701 Family Practic e 2019-08-17 2019-08-17 Outpatient Lemming_S VFP VFP [facility] 07:32:00 07:32:00 0622 Family Practic e 2019-08-13 2019-08-13 [place] Lemming_[place] VFP [place] - [id number] 20 [facility] 00:00:00 00:00:00 [facility] 0618 Famil y PA: 9055 Medical - Pract ic [place] VM_HOU_Memo e [address] [address] , Ph. 2019-04-11 2019-04-11 Outpatient Lemming_S VFP VFP [facility] 02:45:00 02:45:00 0215 Family Practic e 2019-03-16 2019-03-16 Outpatient Lemming_S VFP VFP [facility] 03:05:00 03:05:00 0120 Family Practic e 2019-03-12 2019-03-12 [place] Lemming_S VFP [place] - [address] 20 [facility] 00:00:00 00:00:00 [facility] 0116 Famil y PA: 9055 Medical - Pract ic [place] [facility]HOU[facility]Memo e [address] [address] , Ph. 2018-12-31 2018-12-31 Outpatient Lemming_S VFP VFP [id number] [facility] 10:37:00 10:37:00 1106 Family Practic e 2017-05-28 2017-05-28 [place]FP [place] - [address] [facility] 00:00:00 00:00:00 [facility] 0403 Family Oropeza, Family Practic DO: 74738 Practice - e [place] [facility]FP[facility] [address] [address] , Ph. 2016-02-09 2016-02-09 [place] - [address]-4 016 [facility] 00:00:00 00:00:00 [facility] 1215 Fam siddhartha [employer]ERSON [employer] EQUIPMENT: 9055 Family Practi c [place] [facility] [address], [place] [address] , Ph. 2016-01-21 2016-01-21 Dom [place] [facility] [place] [facility] [place] - [address]-8 016 [facility] 00:00:00 00:00:00 MD Duane: [facility] 1126 Fam siddhartha 9055 [place] [facility], Practice - e [address], [facility] [address] , Ph. 2015-12-31 2015-12-31 [place] [facility] [place] [place] - [address] 016 [facility] 00:00:00 00:00:00 Cu, PA-C: [facility] 110[address]ami [address] 9055 [place] [facility] c [facility], Practice - e [address], [facility] [address] , Ph. Results Test Description Test Time Test Comments Results Result Comments Source Tuberculosis reaction wheal [Diameter] --3 days post d ose kerrie 2021-11-03 15:42:02 tuberculin intradermal Test Item Value Reference Range Interpretation Comme nts TB (test code = TB) negative [facility] PracticeTuberculosis reaction wheal [Diameter] --3 days post dose kerrie tuberculin [id number] 15:42:02 Test Item Value Reference Range Interpretation Comments TB (test code = TB) negative [facility], [id number] 11:05:00 Test Item Value Reference Range Interpretation Comments Strep (test code = Strep) negative [facility], [id number] 11:05:00 Test Item Value Reference Range Interpretation Comments Strep (test code = Strep) negative [facility] and B and SARS-CoV+SARS-CoV-2 (COVID- 19) Ag panel - Upper respiratory specimen by Rapid [id number] 11:04:00 Test Item Value Reference Range Interpretation Comments Influenza A (test code = Presumptive Negative Influenza A) Influenza B (test code = Presumptive Negative Influenza B) SARS-CoV-2 Antigen (test Presumptive Negative code = SARS-CoV-2 Antigen) [facility] PracticeInfluenza virus A and B and SARS-CoV+SARS-CoV-2 (COVID- 19) Ag panel - Upper respiratory specimen by Rapid [id number] 11:04:00 Test Item Value Reference Range Interpretation Comments Influenza A (test code = Presumptive Negative Influenza A) Influenza B (test code = Presumptive Negative Influenza B) SARS-CoV-2 Antigen (test Presumptive Negative code = SARS-CoV-2 Antigen) [facility] [id number] 00:00:00 Test Item Value Reference Range Interpretation Comments test name: (test code = test HCG, ql, urine name:) test code: (test code = test [id number] code:) client contact: (test code = vida marques client contact:) report always message signature (test code = report always message signature) comment (test code = comment) [facility], [id number] 00:00:00 Test Item Value Reference Range Interpretation Comments HCG, ql, urine (test code = HCG, ql, tnp urine) [facility]osis and vaginitis DNA panel - Vaginal fluid by Probe with signal [id number] 00:00:00 Test Item Value Reference Range Interpretation Comments lactobacillus species 6.8 log (cells/mL) (test code = lactobacillus species) atopobium vaginae (test not detected code = atopobium vaginae) megasphaera species (test not detected code = megasphaera species) gardnerella vaginalis <4.7 (test code = gardnerella vaginalis) bv category: (test code = not supportive bv category:) sureswab(R) trichomonas not detected vaginalis RNA, ql, tma (test code = sureswab(R) trichomonas vaginalis RNA, ql, tma) C. albicans, DNA (test detected A code = C. albicans, DNA) C. glabrata, DNA (test not detected code = C. glabrata, DNA) C. tropicalis, DNA (test not detected code = C. tropicalis, DNA) C. parapsilosis, DNA (test not detected code = C. parapsilosis, DNA) [facility]hori[facility]otrop[facility] ( test) [Presence] in Serum or [id number] 00:00:00 Test Item Value Reference Range Interpretation Comments HCG, total, ql (test code = HCG, total, tnp ql) [facility] [id number] 00:00:00 Test Item Value Reference Range Interpretation Comments extra tube received (test code = extra tube received) specimen type received (test code = urine specimen type received) [facility] complete panel - [id number] 00:00:00 Test Item Value Reference Range Interpretation Comments color (test code = yellow yellow color) appearance (test code clear clear = appearance) specific gravity (test 1.005 1.001-1.035 code = specific gravity) pH (test code = pH) 6.0 5.0-8.0 glucose (test code = negative negative glucose) bilirubin (test code = negative negative bilirubin) ketones (test code = negative negative ketones) occult blood (test negative negative code = occult blood) protein (test code = negative negative protein) nitrite (test code = negative negative nitrite) leukocyte esterase 2+ negative A (test code = leukocyte esterase) WBC (test code = WBC) 6-10 See_Comment A [Auto mated message] The system Lapio generated this result transmitted ref erence range: < or = 5 . The reference range was not used to int erpret this result as normal/abnormal . RBC (test code = RBC) none seen See_Comment [Auto mated message] The system Lapio generated this result transmitted ref erence range: < or = 2 . The reference range was not used to int erpret this result as normal/abnormal . squamous epithelial 0-5 See_Comment [Automa stuart message] cells (test code = The syste m which squamous epithelial generate d this result cells) transmitted ref erence range: < or = 5 . The reference range was not used to int erpret this result as normal/abnormal . bacteria (test code = few none seen A bacteria) hyaline cast (test none seen none seen code = hyaline cast) [facility] identified in Urine by [id number] 00:00:00 Test Item Value Reference Range Interpretation Comments culture, urine, routine (test code = see note culture, urine, routine) [facility]inalysis macro (dipstick) panel - [id number] 17:44:00 Test Item Value Reference Range Interpretation Comments Color Color (test code = Color yellow Color) Color Appearance (test code = Color clear Appearance) Color Glucose (test code = Color negative Glucose) Color Bilirubin (test code = Color negative Bilirubin) Color Ketones (test code = Color negative Ketones) Color Specific Hayden (test code = 1.025 Color Specific Hayden) Color Blood (test code = Color large Blood) Color PH (test code = Color PH) 7.0 Color Protein (test code = Color 30 Protein) Color Urobilinogen (test code = 0.2 Color Urobilinogen) Color Nitrites (test code = Color negative Nitrites) Color Leukocytes (test code = Color negative Leukocytes) [facility] identified in Urine by [id number] 21:07:00 Test Item Value Reference Range Interpretation Comments urine culture, routine (test final report code = urine culture, routine) result 1 (test code = result 1) no growth [facility] identified in Urine by [id number] 00:00:00 Test Item Value Reference Range Interpretation Comments urine culture, routine (test final report code = urine culture, routine) result 1 (test code = result 1) no growth [facility] identified in Urine by [id number] 00:00:00 Test Item Value Reference Range Interpretation Comments urine culture, routine (test final report A code = urine culture, routine) result 1 (test code = result escherichia coli A 1) antimicrobial susceptibility comment (test code = antimicrobial susceptibility) [facility] CenterChlamydia trachomatis+Neisseria gonorrhoeae rRNA [Presence] in Urine by DNA [id number] 00:00:00 Test Item Value Reference Range Interpretation Comments chlamydia trachomatis, NOEL (test negative negative code = chlamydia trachomatis, NOEL) neisseria gonorrhoeae, NOEL (test negative negative code = neisseria gonorrhoeae, NOEL) please note: (test code = please comment note:) [facility] CenterHepatitis C virus Ab [Units/volume] in [id number] 00:00:00 Test Item Value Reference Range Interpretation Comments hep C virus Ab (test code = hep C virus <0.1 0.0-0.9 Ab) [facility]Reagin Ab [Presence] in Serum by [id number] 00:00:00 Test Item Value Reference Range Interpretation Comments RPR (test code = RPR) non reactive non reactive [facility]HIV-1/2 Ag and abs, 4TH gen. w/rflx [id number] 00:00:00 Test Item Value Reference Range Interpretation Comments HIV screen 4TH generation wrfx non reactive non reactive (test code = HIV screen 4TH generation wrfx) [facility]
[2022-04-13 21:46] LABS: Urine Blood Trace-intact (Negative); Urine Glucose Negative (Negative); Urine Protein Negative (Negative); Urine Specific Gravity 1.025 (1.005-1.030)
[2022-04-13 22:09] LABS: Absolute Lymphocytes (CBC) 0.7 K/uL (0.7-4.9)
[2022-04-13 22:17] LABS: Hematocrit 39.5 % (36.0-45.0); Lymphocytes % 17.2 % (15.3-44.8); MCV 84.6 fL (80-100); MPV 10.1 fL (7.6-11.3); RBC Red Blood Cell Count 4.67 M/uL (3.86-4.86)
[2022-04-13 22:33] LABS: Urine Specific Gravity/Preg 1.025 (1.005-1.030)
[2022-04-13 22:34] LABS: BUN Blood Urea Nitrogen 11 mg/dL (7-18); Bicarbonate 23 mmol/L (21-32); Glomerular Filtration Rate 123 ml/min (=/>90); Glucose Level 143 mg/dL (74-106); Magnesium 2.2 mg/dL (1.6-2.4); NT PRO-BNP 27 pg/mL (<125); Potassium 3.6 mmol/L (3.5-5.1); Sodium Level 137 mmol/L (136-145)
[2022-04-13 22:35] LABS: Troponin High Sensitivity < 3.0 pg/mL (<58.9)
--- NOTE | 2022-04-13 22:52 | RAD REPORT ---
EXAM DESCRIPTION: Martin Single View04/13/2022 10:15 pm CLINICAL HISTORY: Chest pain COMPARISON: No comparisons TECHNIQUE: Portable AP view of the chest. FINDINGS: The lungs are clear. No pneumothorax or effusion. The cardiomediastinal contours are unrem arkable. IMPRESSION: No acute cardiopulmonary process.
[2022-04-13] MEDS ORDERED: METHYLPREDNISOLONE 40 MG INJ ONE (23:26)
[2022-04-13] MEDS ORDERED: LEVALBUTEROL 1.25 MG/3 ML NEB ONE (23:26)
[2022-04-13] MEDS ORDERED: NA CHLORIDE 0.9% 500 ML ONE (23:53)
--- NOTE | 2022-04-14 00:43 | EDPHYS ---
Physician Documentation [facility] Name: Genie Ellsworth Age: 31 yrs Sex: Female : 1990 Arrival Date: 04/13/2022 Time: 21:03 Bed 15 Private MD: ED Physician Micheline Alcantara HPI: 04/12 21:25 This 31 yrs old Female presents to ER via Ambulatory with complaints of Chest cp Pain, Shortness Of Breath. 21:25 The patient has shortness of breath with light activity. Onset: The symptoms/episode cp began/occurred last month, and became worse 1 week(s) ago. 21:25 Duration: The symptoms are continuous, and are steadily getting worse. The patient or cp guardian reports chest pain that is located primarily in the mid chest. The pain radiates to Associated signs and symptoms: Pertinent negatives: productive cough, diaphoresis, fever, hemoptysis, vomiting. Patient presents to ED for evaluation of chest pain and increasing SOB over the past week. Patient reports testing positive for COVID-19 last month and since, increasing SOB worse with exertion. 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 Attributed incident to cat allergy and fact patient owned a cat, but had appt this week with pcp who ordered d-dimer test and informed patient today it was elevated. Historical: - Allergies: 04/13 22:33 No Known Allergies; ke1 - Home Meds: 22:33 Fioricet Oral [Active]; Xanax Oral [Active]; ke1 - PMHx: 22:33 Anxiety; Migraine; ke1 - Immunization history:: Client reports receiving the 2nd dose of the Covid vaccine. - Social history:: Smoking status: Patient denies any tobacco usage or history of. ROS: 21:30 Constitutional: Negative for body aches, chills, fever, poor PO intake. cp 21:30 Eyes: Negative for injury, pain, redness, and discharge. cp 21:30 ENT: Negative for drainage from ear(s), ear pain, sore throat, difficulty swallowing, difficulty handling secretions. 21:30 Cardiovascular: Positive for chest pain, Negative for edema, palpitations. 21:30 Respiratory: Positive for cough, with no reported sputum, shortness of breath, on exertion. Negative for wheezing. 21:30 Abdomen/GI: Negative for abdominal pain, nausea, vomiting, and diarrhea. 21:30 Back: Negative for pain at rest, pain with movement. 21:30 Neuro: Negative for altered mental status, dizziness, headache, syncope, weakness. 21:30 All other systems are negative. Exam: 21:33 Back: ROM is normal. cp 21:33 Head/Face: Normocephalic, atraumatic. cp 21:33 Constitutional: The patient appears in no acute distress, alert, awake, non-diaphoretic, non-toxic, well developed, well nourished. 21:33 Eyes: Periorbital structures: appear normal, Conjunctiva: normal, no exudate, no injection, Sclera: no appreciated abnormality, Lids and lashes: appear normal, bilaterally. 21:33 ENT: External ear(s): are unremarkable, Nose: is normal, Mouth: Lips: moist, Oral mucosa: pink and intact, moist, Posterior pharynx: is normal, airway is patent, no erythema, no exudate. 21:33 Neck: ROM/movement: is normal, is supple, without pain, no range of motions limitations, no meningismus, no nuchal rigidity. 21:33 Chest/axilla: Inspection: normal. 21:33 Cardiovascular: Rate: tachycardic, Rhythm: regular, Edema: is not appreciated, JVD: is not appreciated. 21:33 Respiratory: the patient does not display signs of respiratory distress, Respirations: normal, no use of accessory muscles, no retractions, labored breathing, is not present, Breath sounds: are clear throughout, no decreased breath sounds, no stridor, no wheezing. 21:33 Abdomen/GI: Exam negative for discomfort, distension, guarding, Inspection: abdomen appears normal. 21:33 Skin: cellulitis, is not appreciated, no rash present. cp 21:33 Neuro: Orientation: to person, place \T\ time. Mentation: is normal, Motor: is normal, Sensation: is normal. 22:22 ECG was reviewed by the Attending Physician. cp Vital Signs: 21:19 BP 144 / 95; Pulse 109; Temp 97.8(O); Pulse Ox 100% on R/A; bb 04/14 00:00 BP 124 / 71; Pulse 112; Resp 19; Pulse Ox 100% ; ke1 MDM: 04/13 21:19 Patient medically screened. cp 22:00 Differential diagnosis: Anemia asthma, Bronchitis abnormal EKG, anxiety, pneumonia, cp Pneumothorax pulmonary edema, Pulmonary Embolism Sepsis. 04/14 00:41 Data reviewed: vital signs, nurses notes, lab test result(s), EKG, radiologic studies, cp CT scan. 00:41 Antibiotic administration: Not indicated, the patient does not have an appreciated cp infiltrate. Data interpreted: java web services developer: rhythm is normal sinus rhythm, Pulse oximetry: on room air is 100 %. Interpretation: normal. Counseling: I had a detailed discussion with the patient and/or guardian regarding: the historical points, exam findings, and any diagnostic results supporting the discharge/admit diagnosis, lab results, radiology results, the need for outpatient follow up, a family practitioner, to return to the emergency department if symptoms worsen or persist or if there are any questions or concerns that arise at home. Response to treatment: the patient's symptoms have mildly improved after treatment, and as a result, I will discharge patient. 04/13 21:17 Order name: Basic Metabolic Panel; Complete Time: 22:36 cp 04/13 21:17 Order name: CBC with Diff; Complete Time: 22:36 cp 04/13 21:17 Order name: Magnesium; Complete Time: 22:36 cp 04/13 21:17 Order name: NT PRO-BNP; Complete Time: 22:36 cp 04/13 21:17 Order name: Troponin HS; Complete Time: 22:36 cp 04/13 21:47 Order name: Urine Dipstick-Ancillary; Complete Time: 22:36 EDMS 04/13 21:17 Order name: XRAY Chest (1 view); Complete Time: 23:48 cp 04/13 21:17 Order name: EKG; Complete Time: 21:17 cp 04/13 21:17 Order name: Cardiac monitoring; Complete Time: 21:53 cp 04/13 21:17 Order name: CT Chest For PE Angio cp 04/13 21:49 Order name: Urine --Ancillary (enter results); Complete Time: 22:36 ds4 04/13 21:17 Order name: EKG - Nurse/Tech; Complete Time: 22:58 cp 04/13 21:17 Order name: IV Saline Lock; Complete Time: 21:54 cp 04/13 21:17 Order name: Labs collected and sent; Complete Time: 22:06 cp 04/13 21:17 Order name: O2 Per Protocol; Complete Time: 21:54 cp 04/13 21:17 Order name: O2 Sat Monitoring; Complete Time: 21:54 cp 04/13 21:17 Order name: Urine Test (obtain specimen); Complete Time: 21:49 cp 04/13 21:17 Order name: Urine Dipstick-Ancillary (obtain specimen); Complete Time: 21:49 cp EC/17 22:22 Rate is 69 beats/min. Rhythm is regular. WA interval is normal. QRS interval is normal. cp QT interval is normal. T waves are Inverted in lead aVR. Interpreted by me. Reviewed by me. Administered Medications: 23:29 Drug: SOLU-Medrol (methylPrednisoLONE) 80 mg Route: IVP; Site: right antecubital; [facility] 04/14 01:10 Follow up: Response: Marked relief of symptoms [facility] 04/13 23:29 Drug: Xopenex (levalbuterol) (3) 1.25 mg Route: Inhalation; [facility] 23:53 Drug: NS 0.9% 500 ml Route: IV; Rate: bolus; Site: right antecubital; [facility] Disposition Summary: 04/14/22 00:42 Discharge Ordered Location: Home cp Problem: new cp Symptoms: have improved cp Condition: Stable cp Diagnosis - Shortness of breath cp - Chest pain, unspecified cp Followup: cp - With: Private Physician - When: 2 - 3 days - Reason: Recheck today's complaints Discharge Instructions: - Discharge Summary Sheet cp - Nonspecific Chest Pain, Adult cp - Shortness of Breath, Adult cp - Form - Excuse from Work, School, or Physical Activity cp Forms: - Medication Reconciliation Form cp - Thank You Letter cp - Antibiotic Education cp - Prescription Opioid Use cp Prescriptions: - budesonide 0.5 mg/2 mL Inhalation suspension for nebulization - inhale 2 milliliter by NEBULIZATION route 2 times per day; 1 box; Refills: 0, cp Product Selection Permitted - ipratropium-albuterol 0.5 mg-3 mg(2.5 mg base)/3 mL Inhalation solution for nebulization - inhale 3 milliliter by NEBULIZATION route 4 times per day; 1 box; Refills: 0, cp Product Selection Permitted - Ibuprofen 800 mg Oral Tablet - take 1 tablet by ORAL route every 8 hours As needed take with food; 30 tablet; cp Refills: 0, Product Selection Permitted Addendum: 04/15/2022 06:28 I reviewed the patient's care provided by the Advanced Practice Provider and agree with s d2 the diagnosis and treatment plan. Signatures: Dispatcher [employer] EDMS Randy Zaragoza PA PA cp Ebrottie, Kouassi, RN RN ke1 Micheline Alcantara MD MD sd2 Corrections: (The following items were deleted from the chart) 00:05 02/ 21:20 This 31 yrs old Female presents to ER via Ambulatory with cp complaints of Chest Pain, Shortness Of Breath. cp 04/15 00:11 04/14 21:25 This 31 yrs old Female presents to ER via Ambulatory with cp complaints of Chest Pain, Shortness Of Breath. cp 04/15 00:22 04/14 21:33 Constitutional: The patient appears in no acute distress, alert, awake, cp non-diaphoretic, non-toxic, well developed, well nourished, cp 04/15 00:22 04/14 21:33 Head/Face: Normocephalic, atraumatic. cp cp 04/15 00:22 04/14 21:33 Eyes: Periorbital structures: appear normal, Conjunctiva: normal, no cp exudate, no injection, Sclera: no appreciated abnormality, Lids and lashes: appear normal, bilaterally, cp 04/15 00:22 04/14 21:33 ENT: External ear(s): are unremarkable, Nose: is normal, Mouth: Lips: cp moist, Oral mucosa: pink and intact, moist, Posterior pharynx: is normal, airway is patent, no erythema, no exudate, cp 04/15 00:22 0218 21:33 Neck: ROM/movement: is normal, is supple, without pain, no range of motions cp limitations, no meningismus, no nuchal rigidity, cp 04/15 00:22 18 21:33 Chest/axilla: Inspection: normal, cp cp 04/15 00:22 0218 21:33 Cardiovascular: Rate: tachycardic, Rhythm: regular, Edema: is not cp appreciated, JVD: is not appreciated, cp 04/15 00:22 04/14 21:33 Respiratory: the patient does not display signs of respiratory distress, cp Respirations: normal, no use of accessory muscles, no retractions, labored breathing, is not present, Breath sounds: are clear throughout, no decreased breath sounds, no stridor, no wheezing, cp 04/15 00:22 04/14 21:33 Abdomen/GI: Exam negative for discomfort, distension, guarding, Inspection: cp abdomen appears normal, cp 04/15 99:04/14 21:33 Back: ROM is cp cp
--- NOTE | 2022-04-14 00:43 | ER ---
Nurse's Notes [facility] Name: Genie Ellsworth Age: 31 yrs Sex: Female : 1990 Arrival Date: 04/13/2022 Time: 21:03 Bed 15 Private MD: Diagnosis: Shortness of breath;Chest pain, unspecified Presentation: 04/13 21:19 Chief complaint: Patient states: she is having SOB x 1 week. Coronavirus screen: Client bb presents with at least one sign or symptom that may indicate coronavirus-19. Ebola Screen: No symptoms or risks identified at this time. Initial Sepsis Screen: Does the patient meet any 2 criteria? No. Patient's initial sepsis screen is negative. Does the patient have a suspected source of infection? No. Patient's initial sepsis screen is negative. Risk Assessment: Do you want to hurt yourself or someone else? Patient reports no desire to harm self or others. Onset of symptoms was April 06, 2022. 21:19 Method Of Arrival: Ambulatory bb 21:19 Acuity: KATHY 3 bb Triage Assessment: 22:00 General: Appears in no apparent distress. Behavior is appropriate for age. Pain: Denies ke1 pain. Cardiovascular: Rhythm is sinus rhythm. Historical: - Allergies: 22:33 No Known Allergies; ke1 - Home Meds: 22:33 Fioricet Oral [Active]; Xanax Oral [Active]; ke1 - PMHx: 22:33 Anxiety; Migraine; ke1 - Immunization history:: Client reports receiving the 2nd dose of the Covid vaccine. - Social history:: Smoking status: Patient denies any tobacco usage or history of. Screenin:35 [facility] ED Fall Risk Assessment (Adult) History of falling in the last 3 months, ke1 including since admission No falls in past 3 months (0 pts) Confusion or Disorientation No (0 pts) Intoxicated or Sedated No (0 pts) Impaired Gait No (0 pts) Mobility Assist Device Used No (0 pt) Altered Elimination No (0 pt) Score/Fall Risk Level 0 - 2 = Low Risk. Abuse screen: Denies threats or abuse. Nutritional screening: No deficits noted. Tuberculosis screening: No symptoms or risk factors identified. Assessment: 04/14 00:00 Pain: Denies pain. ke1 01:10 Reassessment: Patient denies pain at this time. Patient states feeling better. Patient ke1 states symptoms have improved. Vital Signs: 04/13 21:19 BP 144 / 95; Pulse 109; Temp 97.8(O); Pulse Ox 100% on R/A; bb 04/14 00:00 BP 124 / 71; Pulse 112; Resp 19; Pulse Ox 100% ; ke1 ED Course: 04/13 21:03 Patient arrived in ED. jj6 21:07 Randy Zaragoza PA is PHCP. cp 21:07 Micheline Alcantara MD is Attending Physician. cp 21:21 Triage completed. bb 21:36 Lana Huynh RN is Primary Nurse. ke1 21:46 Inserted saline lock: 20 gauge in right antecubital area, using aseptic technique. kr3 Blood collected. 22:17 XRAY Chest (1 view) In Process Unspecified. EDMS 22:36 Patient maintains SpO2 saturation greater than 95% on room air. ke1 23:00 Patient has correct armband on for positive identification. Client placed on continuous ke1 cardiac and pulse oximetry monitoring. NIBP monitoring applied. phototypesetting equipment monitor on. Pulse ox on. NIBP on. 23:18 CT Chest For PE Angio In Process Unspecified. EDMS 04/14 01:12 No provider procedures requiring assistance completed. ke1 01:12 IV discontinued. ke1 Administered Medications: 04/13 23:29 Drug: SOLU-Medrol (methylPrednisoLONE) 80 mg Route: IVP; Site: right antecubital; ke1 04/14 01:10 Follow up: Response: Marked relief of symptoms ke1 04/13 23:29 Drug: Xopenex (levalbuterol) (3) 1.25 mg Route: Inhalation; ke1 23:53 Drug: NS 0.9% 500 ml Route: IV; Rate: bolus; Site: right antecubital; ke1 Medication: 04/14 01:12 VIS not applicable for this client. ke1 Outcome: 00:42 Discharge ordered by . cp 01:12 Discharged to home ambulatory. ke1 01:12 Condition: good 01:12 Discharge instructions given to patient. 01:13 Patient left the ED. ke1 Signatures: Dispatcher [employer] EDMS Linda Shoemaker RN RN bb Randy Zaragoza PA PA cp Jeffries, Jennifer jj6 Lana Huynh, RN RN ke1 Nohemi Sparks, RN RN kr3
--- NOTE | 2022-04-16 12:11 | RAD REPORT ---
EXAM DESCRIPTION: CT - Chest For Pe Angio - 04/14/2022 12:28 am CLINICAL HISTORY: The patient is 31 years old and is Female; Chest pain TECHNIQUE: Axial computed tomographic angiography images of the chest with intravenous contrast. S agittal and coronal reformatted images were created and reviewed. This CT exam was performed using one or more of the following dose reduction techniques: automated exposure control, adjustment of t he mA and/or kV according to patient size, and/or use of iterative reconstruction technique. MIP reconstructed images were created and reviewed. COMPARISON: No relevant prior studies available. FINDINGS: PULMONARY ARTERIES: Unremarkable. No pulmonary embolism. No aortic aneurysm or dissection. AORTA: No acute findings. No thoracic aortic aneurysm. LUNGS: Unremarkable. No mass. No consolidation. PLEURAL SPACE: Unremarkable. No significant effusion. No pneumothorax. HEART: Unremarkable. No cardiomegaly. No significant pericardial effusion. No evidence of RV dysfunction. BONES/JOINTS: No acute fracture. No dislocation. SOFT TISSUES: Unremarkable. LYMPH NODES: Unremarkable. No enlarged lymph nodes. IMPRESSION: Normal chest CTA. No pulmonary embolism. Electronically signed by: Raymond Braga MD 04/13/2022 11:40 PM TRANSPORT SPECIALIST Due to temporary technical issues with the PACS/Fluency reporting system, reports are being signed by the in house radiologists without review as a courtesy to insure prompt reporting. The interpreting radiologist is fully responsible for the content of the report.
--- NOTE | 2022-04-16 12:44 | EKG ---
Test Date: 2022-04-13 Test Time: 22:15:51 Telecasting Technician: LUNA MEASUREMENT RESULTS: Intervals: Rate: 69 NV: 142 QRSD: 80 QT: 414 QTc: 443 [place]: P: 13 NV: 142 QRS: 11 T: 20 INTERPRETIVE STATEMENTS: Normal sinus rhythm Cannot rule out Anterior infarct, age undetermined Abnormal ECG Compared to ECG 04/13/2022 22:15:19 No significant changes Electronically Signed On 04-16-22 12:37:52 MAINTENANCE REPRESENTATIVE by Velasquez Coulter
== END 2022-04-14 01:13 | disposition home or self-care (01) ==
LOC: ER 21:00
DX: R06.02 Shortness of breath (principal); R07.89 Other chest pain; F41.9 Anxiety disorder, unspecified
CPT/HCPCS: 36415; 71045; 71275; 80048; 81003; 81025; 83735; 83880; 84484; 85025; 93005; 96374; 99285; J2920; J7040; J7614; Q9967

== ENCOUNTER 2022-08-18 05:29 | Emergency (ER) | payer OTHER ==
--- OUTSIDE RECORDS SUMMARY | 2022-08-18 05:35 | XMS REPORT | Continuity of Care Document ---
:1990 Author Organization [facility] t Address [address] [place] [address] Care Team Providers Name Role Phone Hector Zepeda MD, Doc Primary Care Physician Lori Attending Clinician Unavailable Ramireddy_S Attending Clinician Unavailable Lucinda Attending Clinician Unavailable Lemming_S Attending Clinician Unavailable Lori Admitting Clinician Unavailable Ramiredallyson_S Admitting Clinician Unavailable Lucinda Admitting Clinician Unavailable Lemming_S Admitting Clinician Unavailable Payers Payer Name Policy Type Policy Number Effective Date Expiration Date S ourgabbi [employer] [id number] 2021 INSURANCE - UNITED 00:00:00 HEALTHCARE - CHOICE PLUS (PPO) [facility] [id number] 2020 (PPO) 00:00:00 JAYANTRUST [id number] [facility] 4 (PPO) Problems Condition Condition Condition Status Onset Resolution Last Treating Co mments Source Name Details Category Date Date Treatment Clinician Date Anxiety Anxiety Problem Active [place] 7- Family 00:00: Practic 00 e Acute Acute Problem Active [place] sinusitis Sinusitis 09-19 Fami ly 00:00: Practic 00 e Vaginitis Vaginitis Problem Active Kian klever 7- Family 00:00: Practic 00 e Recurrent Recurrent Problem Active Kian Olmsteadiasi 07 Fa augustus s of s of 00:00: Practic vagina Vagina 00 e Obesity Obesity Problem Active 2019-02 [facility] 125 Family 00:00: Practic 00 e Chronic Chronic Disease Active Methodi midline midline 2-19 st low back low back 00:00: Hospit a pain pain 00 l without without sciatica sciatica Palpitatio Palpitatio Disease Active M ethodi ns ns 3-21 st 00:00: Hospita 00 l Anxiety Anxiety Problem Active [place] state State 8 Family 00:00: Practic 00 e Allergies, Adverse Reactions, Alerts Allergy Allergy Status Severity Reaction(s) Onset Inactive Treating Comm ents Source Name Type Date Date Clinician Glucosam Propensi Active Anaphylaxis Soft M ethodi ine ty to 07-[address] adverse 00:00: crawfish Hospita reaction 00 l s to drug Codeine Propensi Active Anxiety PT STATES Met hodi ty to 02-[address] adverse 00:00: TAKING Hospita reaction 00 THIS l s to MEDICATIO drug N IT MAKES HER DEPRESSED Depressio n Shellfis Propensi Active Anaphylaxis M ethodi h ty to 02-27 st Containi adverse 00:00: Hospita ng reaction 00 l Products s to drug Codeine Drug Active Anxiety [facility] 00 THIS Center MEDICATIO N IT MAKES HER DEPRESSED Shellfis Drug Active [facility]aphylaxis [facility] Contain[facility] 00:[facility]: Medical ng 00 Center Products CODEINE Allergy Active 2013-02 [facility] PHOSPHAT to 03-22 Family E substanc 00:00: Practic e 00 e Family History Family Member Diagnosis Comments Start Date Stop Date Source Natural father Diabetes [facility] Natural father Alcohol abuse [facility] Natural father Diabetes [facility] Maternal grandfather Cancer [facility] Maternal grandfather Colon cancer [facility] Maternal grandfather Melanoma [facility] Maternal aunt Bipolar disorder [facility] Maternal grandmother Bipolar disorder [facility] Paternal grandmother defects [facility] Natural brother Asthma [facility] Social History Social Habit Start Date Stop Date Quantity Comments Source Gender identity [facility] Sexual orientation [facility] History of tobacco Current smoker [facility] Alcohol intake 2016-12-26 2016-12-26 Current drinker [facility] (finding) History of Social 2016-03-19 2016-03-[address] function 00:00:00 00:00:00 Hospital Tobacco use and 2016-02-28 2016-02-[address] [facility] [facility] exposure 00:00[facility]00 [facility]00 [facility] Sex Assigned At [address] [facility] 00[facility] Smoking Status Start Date Stop Date Source Never smoked tobacco [facility] Former smoker 2016-02-28 00:00:00 2016-02-28 00:00:00 [facility] Medications Ordered Filled Start Stop Current Ordering Indication Dosage Frequency Signature Comments Components Source Medication Medication Date Date Medication? Clinician (SIG) Name Name hydroxyzine hydroxyzine No hydroxyzin [place] HCl 25 mg HCl 25 mg 6-22 e HCl 25 F amily tablet tablet 00:00: mg tablet Prac tic 00 e Fioricet 50 Fioricet 50 2020-02 No 1capsul Q4H Fioricet Nikhil mg-300 mg-300 2-10 e(s) 50 mg-300 [...] Fioricet 50 2020-02 No 1capsul Q4H Fioricet Nikhil mg-300 mg-300 2-10 e(s) 50 mg-300 [...] Fioricet 50 2020-02 No 1capsul Q4H Fioricet [facility] mg-300 mg-300 2-10 e(s) 50 mg-300 Family mg-40 mg mg-40 mg 00:00: mg-40 mg P ractic capsule capsule 00 capsule e Take 1 Take 1 Take 1 capsule capsule capsule every 4 every 4 every 4 hours by hours by hours by oral route oral route oral route as needed. as needed. as needed. Fioricet 50 oricet 50 2020-02 No 1capsul Q4H Fioricet [facility] mg-300 mg-300 2-10 e(s) 50 mg-300 Family mg-40 mg mg-40 mg 00:00: mg-40 mg P ractic capsule capsule 00 capsule e Take 1 Take 1 Take 1 capsule capsule capsule every 4 every 4 every 4 hours by hours by hours by oral route oral route oral route as needed. as needed. as needed. Fioricet 50 oricet 50 2020-02 No 1capsul Q4H Fioricet [facility] mg-300 mg-300 2-10 e(s) 50 mg-300 Family mg-40 mg mg-40 mg 00:00: mg-40 mg P ractic capsule capsule 00 capsule e Take 1 Take 1 Take 1 capsule capsule capsule every 4 every 4 every 4 hours by hours by hours by oral route oral route oral route as needed. as needed. as needed. Fioricet 50 Fioricet 50 2020-02 No 1capsul Q4H Fioricet [facility] mg-300 mg-300 2-10 e(s) 50 mg-300 Family mg-40 mg mg-40 mg 00:00: mg-40 mg P ractic capsule capsule 00 capsule e Take 1 Take 1 Take 1 capsule capsule capsule every 4 every 4 every 4 hours by hours by hours by oral route oral route oral route as needed. as needed. as needed. multivitami 2018-0 Yes 1{tbl} QD Take 1 Me thodi n with 2-[address] [facility] 14:11: mouth Hospita tablet 34 daily. l multivitami Yes 1{tbl} QD Take 1 Me thodi n with 2-[address] [facility] 14:11: mouth Hospita tablet 34 daily. l multivitami 2018 Yes 1{tbl} QD Take 1 Me thodi n with 2-[address] [facility] 14:11: mouth Hospita tablet 34 daily. l PNV WITH 2016-02 Yes 1{tbl} QD Take 1 [facility]IR 1-01 tablet by Christie es ON/FA 12:12: mouth Medical ( 38 daily. [place] MULTIVITAMI N) Tab PNV WITH 2016-02 Yes 1{tbl} QD Take 1 [facility] CA,NO.72/IR 1-01 tablet by Christie es ON/FA 12:12: mouth Medical ( 38 daily. [place] MULTIVITAMI N) Tab PNV WITH 2016-02 Yes 1{tbl} QD Take 1 [facility] CA,NO.72/IR 1-01 tablet by Christie es ON/FA 12:12: mouth Medical ( 38 daily. [place] MULTIVITAMI N) Tab albuterol albuterol No 2puff(s [...] by inhalation route. alprazolam alprazolam No alprazolam [facility] 0.5 mg 0.5 mg 0.5 mg [...] Dulera 200 Dulera 200 No Dulera 200 [facility] mcg-5 mcg-5 mcg-5 Family mcg/actuati mcg/actuati mcg/actuat Practic on HFA on HFA ion HFA e aerosol aerosol aerosol inhaler inhaler inhaler Inhale 2 Inhale 2 Inhale 2 puffs twice puffs twice puffs a day by a day by twice a inhalation inhalation day by route. route. inhalation route. etonogestre etonogestre No etonogestr [facility] l 0.12 l 0.12 el 0.12 Family mg-ethinyl mg-ethinyl mg-ethinyl Practic estradiol estradiol estradiol e 0.015 mg/24 0.015 mg/24 0.015 hr vaginal hr vaginal mg/24 hr ring ring vaginal ring hydroxyzine hydroxyzine No hydroxyzin [facility] HCl 25 mg HCl 25 mg [...] days. Symbicort Symbicort No 2puff(s BID Symbicort [facility] 160 mcg-4.5 160 mcg-4.5 ) 160 F amily mcg/actuati mcg/actuati mcg-4.5 Practic on HFA on HFA mcg/actuat e aerosol aerosol ion HFA inhaler inhaler aerosol Inhale 2 Inhale 2 inhaler puffs twice puffs twice Inhale 2 a day by a day by puffs inhalation inhalation twice a route. route. day by inhalation route. Tubersol 5 Tubersol 5 No .1mL Q1D Tubersol 5 [facility] tub. tub. tub. Family unit/0.1 mL [...] by inhalation route. alprazolam alprazolam No alprazolam [facility] 0.5 mg 0.5 mg 0.5 mg [facility] tablet TAKE tablet TAKE tablet Practic ONE-HALF ONE-HALF TAKE e TABLET TO TABLET TO ONE-HALF ONE (1) ONE (1) TABLET TO TABLET BY TABLET BY ONE (1) MOUTH EVERY MOUTH EVERY TABLET BY DAY DAY MOUTH NEEDED FOR NEEDED FOR EVERY DAY ANXIETY ANXIETY NEEDED FOR ANXIETY clotrimazol clotrimazol No clotrimazo [facility] e-betametha e-betametha le-betamet Family sone 1 [...] Dulera 200 Dulera 200 No Dulera 200 [facility] mcg-5 mcg-5 mcg-5 Family mcg/actuati mcg/actuati mcg/actuat Practic on HFA on HFA ion HFA e aerosol aerosol aerosol inhaler inhaler inhaler Inhale 2 Inhale 2 Inhale 2 puffs twice puffs twice puffs a day by a day by twice a inhalation inhalation day by route. route. inhalation route. etonogestre etonogestre No etonogestr [facility] 0.12 l 0.12 el 0.12 Family mg-ethinyl mg-ethinyl mg-ethinyl Practic estradiol estradiol estradiol e 0.015 mg/24 0.015 mg/24 0.015 hr vaginal hr vaginal mg/24 hr ring ring vaginal ring hydroxyzine hydroxyzine No hydroxyzin [facility] HCl 25 mg HCl 25 mg [...] days. Symbicort Symbicort No 2puff(s BID Symbicort [facility] 160 mcg-4.5 160 mcg-4.5 ) 160 F amily mcg/actuati mcg/actuati mcg-4.5 Practic on HFA on HFA mcg/actuat e aerosol aerosol ion HFA inhaler inhaler aerosol Inhale 2 Inhale 2 inhaler puffs twice puffs twice Inhale 2 a day by a day by puffs inhalation inhalation twice a route. route. day by inhalation route. Tubersol 5 Tubersol 5 No .1mL Q1D Tubersol 5 [facility] tub. tub. tub. Family unit/0.1 mL unit/0.1 mL unit/0.1 Practic intradermal intradermal mL e injection injection intraderma solution solution l Inject 0.1 Inject 0.1 injection mL every mL every solution day by day by Inject 0.1 intradermal intradermal mL every route. route. day by intraderma l route. albuterol albuterol No 2puff(s Q4H albuterol [facility] sulfate HFA sulfate HFA ) sulfate Family 90 90 HFA 90 Practic mcg/actuati mcg/actuati mcg/actuat e on aerosol on aerosol ion inhaler inhaler aerosol Inhale 2 Inhale 2 inhaler puffs every puffs every Inhale 2 4 hours by 4 hours by puffs inhalation inhalation every 4 route. route. hours by inhalation route. alprazolam alprazolam No alprazolam [facility] 0.5 mg 0.5 mg 0.5 mg [...] Dulera 200 Dulera 200 No Dulera 200 [facility] mcg-5 mcg-5 mcg-5 Family mcg/actuati mcg/actuati mcg/actuat Practic on HFA on HFA ion HFA e aerosol aerosol aerosol inhaler inhaler inhaler Inhale 2 Inhale 2 Inhale 2 puffs twice puffs twice puffs a day by a day by twice a inhalation inhalation day by route. route. inhalation route. etonogestre etonogestre No etonogestr [facility] l 0.12 l 0.12 el 0.12 Family mg-ethinyl mg-ethinyl mg-ethinyl Practic estradiol estradiol estradiol e 0.015 mg/24 0.015 mg/24 0.015 hr vaginal hr vaginal mg/24 hr ring ring vaginal ring Medrol Medrol No Medrol [facility] (Gianni) 4 mg (Gianni) 4 mg (Gianni) 4 mg Family tablets in tablets in tablets in Practic a dose pack a dose pack a dose e use as use as pack use directed directed as directed Symbicort Symbicort No 2puff(s BID Symbicort [facility] 160 mcg-4.5 160 mcg-4.5 ) 160 F amily mcg/actuati mcg/actuati mcg-4.5 Practic on HFA on HFA mcg/actuat e aerosol aerosol ion HFA inhaler inhaler aerosol Inhale 2 Inhale 2 inhaler puffs twice puffs twice Inhale 2 a day by a day by puffs inhalation inhalation twice a route. route. day by inhalation route. albuterol albuterol No 2puff(s Q4H albuterol [facility] sulfate HFA sulfate HFA ) sulfate Family 90 90 HFA 90 Practic mcg/actuati mcg/actuati mcg/actuat e on aerosol on aerosol ion inhaler inhaler aerosol Inhale 2 Inhale 2 inhaler puffs every puffs every Inhale 2 4 hours by 4 hours by puffs inhalation inhalation every 4 route as route as hours by needed. needed. inhalation route as needed. alprazolam alprazolam No alprazolam [facility] 0.5 mg 0.5 mg 0.5 mg [...] Bromfed DM No 10mL TID Bromfed DM [facility] 2 mg-30 2 mg-30 2 mg-30 Family [...] Dulera 200 Dulera 200 No Dulera 200 [facility] mcg-5 mcg-5 mcg-5 Family mcg/actuati mcg/actuati mcg/actuat Practic on HFA on HFA ion HFA e aerosol aerosol aerosol inhaler inhaler inhaler Inhale 2 Inhale 2 Inhale 2 puffs twice puffs twice puffs a day by a day by twice a inhalation inhalation day by route. route. inhalation route. etonogestre etonogestre No etonogestr [facility] l 0.12 l 0.12 el 0.12 Family mg-ethinyl mg-ethinyl mg-ethinyl Practic estradiol estradiol estradiol e 0.015 mg/24 0.015 mg/24 0.015 hr vaginal hr vaginal mg/24 hr ring ring vaginal ring fluticasone fluticasone No 1spray( Q1D fluticason [place] propionate propionate s) e Fam siddhartha 50 50 propionate Practic mcg/actuati mcg/actuati 50 e on nasal on nasal mcg/actuat spray,suspe spray,suspe ion nasal nsion [place] nsion [place] spray,susp 1 spray 1 spray ension every day every day [place] 1 by by spray intranasal intranasal every day route for route for by 14 days. 14 days. intranasal route for 14 days. Symbicort Symbicort No 2puff(s BID Symbicort [facility] 160 mcg-4.5 160 mcg-4.5 ) 160 [...] route as needed. alprazolam alprazolam No alprazolam [facility] 0.5 mg 0.5 mg 0.5 mg [...] Dulera 200 Dulera 200 No Dulera 200 [facility] mcg-5 mcg-5 mcg-5 Family mcg/actuati mcg/actuati mcg/actuat [...] needed. needed. needed. etonogestre etonogestre No etonogestr [facility] l 0.12 l 0.12 el 0.12 Family mg-ethinyl mg-ethinyl mg-ethinyl Practic estradiol estradiol estradiol e 0.015 mg/24 0.015 mg/24 0.015 hr vaginal hr vaginal mg/24 hr ring ring vaginal ring fluticasone fluticasone No 1spray( Q1D fluticason [place] propionate propionate s) e Fam siddhartha 50 50 propionate Practic mcg/actuati mcg/actuati 50 e on nasal on nasal mcg/actuat spray,suspe spray,suspe ion nasal nsion [place] nsion [place] spray,susp 1 spray 1 spray ension every day every day [place] 1 by by spray intranasal intranasal every day route for route for by 14 days. 14 days. intranasal route for 14 days. montelukast montelukast No 1 Q1D montelukas [facility] 10 mg 10 mg t 10 mg Family tablet Take tablet Take tablet Practic 1 tablet 1 tablet Take 1 e every day every day tablet by oral by oral every day route for route for by oral 30 days. 30 days. route for 30 days. prednisone prednisone No 2 Q1D prednisone [facility] 20 mg 20 mg 20 mg Family tablet Take tablet Take tablet Practic 2 tablets 2 tablets Take 2 e every day every day tablets by oral by oral every day route in route in by oral the morning the morning route in for 5 days. for 5 days. the morning for 5 days. Symbicort Symbicort No 2puff(s BID Symbicort [facility] 160 mcg-4.5 160 mcg-4.5 ) 160 F amily mcg/actuati mcg/actuati mcg-4.5 Practic on HFA on HFA mcg/actuat e aerosol aerosol ion HFA inhaler inhaler aerosol Inhale 2 Inhale 2 inhaler puffs twice puffs twice Inhale 2 a day by a day by puffs inhalation inhalation twice a route. route. day by inhalation route. Advair Advair No 1puff(s BID Advair Vill[facility] e Diskus 100 Diskus 100 ) Diskus 100 Family mcg-50 mcg-50 mcg-50 Practic mcg/dose mcg/dose mcg/dose e powder for powder for powder for inhalation inhalation inhalation Inhale 1 Inhale 1 Inhale 1 puff twice puff twice puff twice a day by a day by a day by inhalation inhalation inhalation route. route. route. albuterol albuterol No albuterol [facility] sulfate 2.5 sulfate 2.5 sulfate Family mg/3 mL mg/3 mL 2.5 mg/3 Pract ic (0.083 %) (0.083 %) mL (0.083 e solution solution %) for for solution nebulizatio nebulizatio for n n nebulizati on albuterol albuterol No albuterol [facility] sulfate HFA sulfate HFA sulfate Family 90 90 HFA 90 Practic mcg/actuati mcg/actuati mcg/actuat e on aerosol on aerosol ion inhaler inhaler aerosol Inhale 2 Inhale 2 inhaler puffs every puffs every Inhale 2 4 hours by 4 hours by puffs inhalation inhalation every 4 route as route as hours by needed. needed. inhalation route as needed. alprazolam alprazolam No alprazolam [facility] 0.5 mg 0.5 mg 0.5 mg Family tablet TAKE tablet TAKE tablet Practic ONE-HALF ONE-HALF TAKE e TABLET TO TABLET TO ONE-HALF ONE (1) ONE (1) TABLET TO TABLET BY TABLET BY ONE (1) MOUTH EVERY MOUTH EVERY TABLET BY DAY DAY MOUTH NEEDED FOR NEEDED FOR EVERY DAY ANXIETY ANXIETY NEEDED FOR ANXIETY budesonide budesonide No budesonide [facility] 0.5 mg/2 mL 0.5 mg/2 mL 0.5 mg/2 Family suspension suspension mL Pra ctic for for suspension e nebulizatio nebulizatio for n n nebulizati on Diflucan Diflucan No Diflucan Kian klever 150 mg 150 mg 150 mg Family tablet take tablet take tablet Practic 1 tablet if 1 tablet if take 1 e needed needed tablet if after after needed completing completing after antibitoic antibitoic completing ,june repeat ,may repeat antibitoic dose on day dose on day ,june 3 if 3 if repeat symptoms symptoms dose on still still day 3 if present present symptoms still present epinephrine epinephrine No epinephrin [facility] 0.3 mg/0.3 0.3 mg/0.3 e 0.3 Fa augustus mL mL mg/0.3 mL Practic injection, injection, injection, e auto-inject auto-inject auto-injec or Take 1 or Take 1 tor Take 1 auto by auto by auto by injection injection injection route as route as route as needed. needed. needed. etonogestre etonogestre No etonogestr [facility] l 0.12 l 0.12 el 0.12 Family mg-ethinyl mg-ethinyl mg-ethinyl Practic estradiol estradiol estradiol e 0.015 mg/24 0.015 mg/24 0.015 hr vaginal hr vaginal mg/24 hr ring ring vaginal ring fluticasone fluticasone No 1spray( Q1D fluticason [place] propionate propionate s) e Fam siddhartha 50 50 propionate Practic mcg/actuati mcg/actuati 50 e on nasal on nasal mcg/actuat spray,suspe spray,suspe ion nasal nsion [place] nsion [place] spray,susp 1 spray 1 spray ension every day every day [place] 1 by by spray intranasal intranasal every day route for route for by 14 days. 14 days. intranasal route for 14 days. Macrobid Macrobid No 1capsul BID Macrobid [facility] 100 mg 100 mg e(s) 100 mg Family capsule capsule capsule Practi c Take 1 Take 1 Take 1 e capsule capsule capsule twice a day twice a day twice a by oral by oral day by route for 7 route for 7 oral route days. days. for 7 days. montelukast montelukast No [facility] 10 mg 10 mg t 10 mg Family tablet TAKE tablet TAKE tablet Practic ONE TABLET ONE TABLET TAKE ONE e BY MOUTH BY MOUTH TABLET BY DAILY DAILY MOUTH DAILY albuterol albuterol No albuterol [facility] sulfate 2.5 sulfate 2.5 sulfate Family mg/3 mL mg/3 mL 2.5 mg/3 Pract ic (0.083 %) (0.083 %) mL (0.083 e solution solution %) for for solution nebulizatio nebulizatio for n n nebulizati on albuterol albuterol No albuterol [facility] sulfate HFA sulfate HFA sulfate Family 90 90 HFA 90 Practic mcg/actuati mcg/actuati mcg/actuat e on aerosol on aerosol ion inhaler inhaler aerosol Inhale 2 Inhale 2 inhaler puffs every puffs every Inhale 2 4 hours by 4 hours by puffs inhalation inhalation every 4 route as route as hours by needed. needed. inhalation route as needed. alprazolam alprazolam No alprazolam [facility] 0.5 mg 0.5 mg 0.5 mg Family tablet TAKE tablet TAKE tablet Practic ONE-HALF ONE-HALF TAKE e TABLET TO TABLET TO ONE-HALF ONE (1) ONE (1) TABLET TO TABLET BY TABLET BY ONE (1) MOUTH EVERY MOUTH EVERY TABLET BY DAY DAY MOUTH NEEDED FOR NEEDED FOR EVERY DAY ANXIETY ANXIETY NEEDED FOR ANXIETY budesonide budesonide No budesonide [place] 0.5 mg/2 mL 0.5 mg/2 mL 0.5 mg/2 Family suspension suspension mL Pra ctic for for suspension e nebulizatio nebulizatio for n n nebulizati on bupropion bupropion No 1 Q1D bupropion [facility] HCl XL 150 HCl XL 150 HCl XL 150 Family mg 24 hr mg 24 hr mg 24 hr Pra ctic tablet, tablet, tablet, e extended extended extended release release release Take 1 Take 1 Take 1 tablet tablet tablet every day every day every day by oral by oral by oral route. May route. May route. May increase to increase to increase 2 pills a 2 pills a to 2 pills day in 1 day in 1 a day in 1 week if week if week if needed needed needed epinephrine epinephrine No epinephrin [facility] 0.3 mg/0.3 0.3 mg/0.3 e 0.3 Fa augustus mL mL mg/0.3 mL Practic injection, injection, injection, e auto-inject auto-inject auto-injec or Take 1 or Take 1 tor Take 1 auto by auto by auto by injection injection injection route as route as route as needed. needed. needed. etonogestre etonogestre No etonogestr [facility] l 0.12 l 0.12 el 0.12 Family mg-ethinyl mg-ethinyl mg-ethinyl Practic estradiol estradiol estradiol e 0.015 mg/24 0.015 mg/24 0.015 hr vaginal hr vaginal mg/24 hr ring ring vaginal ring fluticasone fluticasone No 1puff(s BID fluticason [place] propionate propionate ) e Fam siddhartha 110 110 propionate Practic mcg/actuati mcg/actuati 110 e on HFA on HFA mcg/actuat aerosol aerosol ion HFA inhaler inhaler aerosol Inhale 1 Inhale 1 inhaler puff twice puff twice Inhale 1 a day by a day by puff twice inhalation inhalation a day by route. route. inhalation route. methylpredn methylpredn No methylpred [facility] isolone 4 isolone 4 nisolone 4 Family mg tablets mg tablets mg tablets Practic in a dose in a dose in a dose e pack use as pack use as pack use directed directed as Take with Take with directed food food Take with food montelukast montelukast No 1 Q1D montelukas [facility] 10 mg 10 mg t 10 mg Family tablet Take tablet Take tablet Practic 1 tablet 1 tablet Take 1 e every day every day tablet by oral by oral every day route for route for by oral 30 days. 30 days. route for 30 days. Immunizations Ordered Immunization Filled Immunization Date Status Commen ts Source Name Name influenza, influenza, 2021-11-01 Completed [facility] injectable, injectable, 11:14:40 Practice quadrivalent, quadrivalent, preservative free preservative free influenza, influenza, 2021-11-01 Completed [facility] injectable, injectable, 11:14:40 Practice quadrivalent, quadrivalent, preservative free preservative free influenza, influenza, 2021-11-01 Completed [facility] injectable, injectable, 11:14:40 Practice quadrivalent, quadrivalent, preservative free preservative free influenza, influenza, 2021-11-01 Completed [facility] injectable, injectable, 11:14:40 Practice quadrivalent, quadrivalent, preservative free preservative free influenza, influenza, 2021-11-01 Completed [facility] injectable, injectable, 11:14:40 Practice quadrivalent, quadrivalent, preservative free preservative free influenza, influenza, 2021-11-01 Completed [facility] injectable, injectable, 11:14:40 Practice quadrivalent, quadrivalent, preservative free preservative free influenza, influenza, 2021-11-01 Completed [facility] injectable, injectable, 11:14:40 Practice quadrivalent, quadrivalent, preservative free preservative free COVID-19, mRNA, COVID-19, mRNA, 2020-12-21 Completed [facility] LNP-S, PF, 30 LNP-S, PF, 30 00:00:00 Practice mcg/0.3 mL dose mcg/0.3 mL dose (Pfizer-BioNTech) - (Pfizer-BioNTech) - ML ML COVID-19, mRNA, COVID-19, mRNA, 2020-12-21 Completed [facility] LNP-S, PF, 30 LNP-S, PF, 30 00:00:00 Practice mcg/0.3 mL dose mcg/0.3 mL dose (Pfizer-BioNTech) - (Pfizer-BioNTech) - ML ML COVID-19, mRNA, COVID-19, mRNA, 2020-12-21 Completed [facility] LNP-S, PF, 30 LNP-S, PF, 30 00:00:00 Practice mcg/0.3 mL dose mcg/0.3 mL dose (Pfizer-BioNTech) - (Pfizer-BioNTech) - ML ML influenza, influenza, 2020-11-09 Completed [facility] Family injectable, injectable, 00:00:00 Practice quadrivalent quadrivalent influenza, influenza, 2020-11-09 Completed [facility] injectable, injectable, 00:00:00 Practice quadrivalent quadrivalent influenza, influenza, 2020-11-09 Completed [facility] injectable, injectable, 00:00:00 Practice quadrivalent quadrivalent influenza, influenza, 2020-11-09 Completed [facility] injectable, injectable, 00:00:00 Practice quadrivalent quadrivalent influenza, influenza, 2020-11-09 Completed [facility] injectable, injectable, 00:00:00 Practice quadrivalent quadrivalent influenza, influenza, 2020-11-09 Completed [facility] injectable, injectable, 00:00:00 Practice quadrivalent quadrivalent influenza, influenza, 2020-11-09 Completed [facility] injectable, injectable, 00:00:00 Practice quadrivalent quadrivalent COVID-19, [...] mL dose mcg/0.3 mL dose (Pfizer-BioNTech) (Pfizer-BioNTech) COVID-19 COVID-19 2020-03-24 Completed [facility] (SARS-COV-2) (SARS-COV-2) 00:00:00 Practice vaccine, unspecified vaccine, unspecified COVID-19 COVID-19 2020-03-24 Completed [facility] (SARS-COV-2) (SARS-COV-2) 00:00:00 Practice vaccine, [...] dose (Pfizer-BioNTech) - (Pfizer-BioNTech) - ML ML COVID-19 COVID-19 2020-03-24 Completed [facility] (SARS-COV-2) (SARS-COV-2) 00:00:00 Practice vaccine, unspecified vaccine, unspecified COVID-19, mRNA, COVID-19, mRNA, 2020-03-24 Completed [facility] LNP-S, PF, 30 LNP-S, PF, 30 00:00:00 Practice mcg/0.3 mL dose mcg/0.3 mL dose (Pfizer-BioNTech) - (Pfizer-BioNTech) - ML ML COVID-19 COVID-19 2020-03-24 Completed [facility] (SARS-COV-2) (SARS-COV-2) 00:00:00 Practice vaccine, unspecified vaccine, unspecified COVID-19, mRNA, COVID-19, mRNA, 2020-03-24 Completed [facility] LNP-S, PF, 30 LNP-S, PF, 30 00:00:00 Practice mcg/0.3 mL dose mcg/0.3 mL dose (Pfizer-BioNTech) - (Pfizer-BioNTech) - ML ML COVID-19 COVID-19 2020-03-24 Completed [facility] (SARS-COV-2) (SARS-COV-2) 00:00:00 Practice vaccine, unspecified vaccine, unspecified COVID-19 COVID-19 2020-03-03 Completed [facility] (SARS-COV-2) (SARS-COV-2) 00:00:00 Practice vaccine, unspecified vaccine, unspecified COVID-19 COVID-19 2020-03-03 Completed [facility] (SARS-COV-2) (SARS-COV-2) 00:00:00 Practice vaccine, unspecified vaccine, unspecified COVID-19 COVID-19 2020-03-03 Completed [facility] (SARS-COV-2) (SARS-COV-2) 00:00:00 Practice vaccine, unspecified vaccine, unspecified COVID-19 COVID-19 2020-03-03 Completed [facility] (SARS-COV-2) (SARS-COV-2) 00:00:00 Practice vaccine, unspecified vaccine, unspecified COVID-19 COVID-19 2020-03-03 Completed [facility] (SARS-COV-2) (SARS-COV-2) 00:00:00 Practice vaccine, unspecified vaccine, unspecified COVID-19 COVID-19 2020-03-03 Completed [facility] (SARS-COV-2) (SARS-COV-2) 00:00:00 Practice vaccine, unspecified vaccine, unspecified COVID-19 COVID-19 2020-03-03 Completed [facility] (SARS-COV-2) (SARS-COV-2) 00:00:00 Practice vaccine, unspecified vaccine, unspecified COVID-19, mRNA, COVID-19, mRNA, 2020-03-02 Completed [facility] LNP-S, PF, 30 LNP-S, PF, 30 00:00:00 Practice mcg/0.3 mL dose mcg/0.3 mL dose (Pfizer-BioNTech) - (Pfizer-BioNTech) - ML ML COVID-19, mRNA, COVID-19, mRNA, 2020-03-02 Completed [facility] LNP-S, PF, 30 LNP-S, PF, 30 00:00:00 Practice mcg/0.3 mL dose mcg/0.3 mL dose (Pfizer-BioNTech) - (Pfizer-BioNTech) - ML ML COVID-19, mRNA, COVID-19, mRNA, 2020-03-02 Completed [facility] LNP-S, PF, 30 LNP-S, PF, 30 00:00:00 Practice mcg/0.3 mL dose mcg/0.3 mL dose (Pfizer-BioNTech) - (Pfizer-BioNTech) - ML ML influenza, influenza, 2019-11-05 Completed [facility] injectable, injectable, 10:14:38 Practice quadrivalent, quadrivalent, preservative free preservative free influenza, influenza, 2019-11-05 Completed [facility] injectable, injectable, 10:14:38 Practice quadrivalent, quadrivalent, preservative free preservative free influenza, influenza, 2019-11-05 Completed [facility] injectable, injectable, 10:14:38 Practice quadrivalent, quadrivalent, preservative free preservative free influenza, influenza, 2019-11-05 Completed [facility] injectable, injectable, 10:14:38 Practice quadrivalent, quadrivalent, preservative free preservative free influenza, influenza, 2019-11-05 Completed [facility] injectable, injectable, 10:14:38 Practice quadrivalent, quadrivalent, preservative free preservative free influenza, influenza, 2019-11-05 Completed [facility] injectable, injectable, 10:14:38 Practice quadrivalent, quadrivalent, preservative free preservative free influenza, influenza, 2019-11-05 Completed [facility] injectable, injectable, 10:14:38 Practice quadrivalent, quadrivalent, preservative free preservative free Tdap 2016-06-05 [facility] 2016-06-05 [facility] T[facility] 2016-06-05 [facility]pleted [facility] Hospital Tdap Tdap 2013-10-28 Completed [facility] 00:00:00 Practice Tdap Tdap 2013-10-28 Completed [facility] 00:00:00 Practice Tdap Tdap 2013-10-28 Completed [facility] 00:00:00 Practice Tdap Tdap 2013-10-28 Completed [facility] 00:00:00 Practice Tdap Tdap 2013-10-28 Completed [facility] 00:00:00 Practice Tdap Tdap 2013-10-28 Completed [facility] 00:00:00 Practice Tdap Tdap 2013-10-28 Completed [facility] 00:00:00 Practice Vital Signs Vital Name Observation Time Observation Value Comments Source BP Diastolic 2022-08-16 00:00:00 76 mm[Hg] [facility] Practice Height 2022-08-16 00:00:00 58 [in_i] [facility] Practice BMI (Body Mass 2022-08-16 00:00:00 30.9 kg/m2 [facility]) [facility] BP Systolic 2022-08-16 00:00:00 102 mm[Hg] [facility] Body Weight 2022-08-16 00:00:00 148 [lb_av] [facility] Height 2022-07-25 00:00:00 58 [in_i] [facility] BP Diastolic 2022-04-11 00:00:00 86 mm[Hg] [facility] Height 2022-04-11 00:00:00 58 [in_i] [facility] BMI (Body Mass 2022-04-11 00:00:00 [...] Family Practice Height 2021-09-19 00:00:00 58 [in_i] [facility] BMI (Body Mass 2021-09-19 00:00:00 [...] Family Practice Height 2013-12-22 00:00:00 58 [in_i] [facility] Practice BMI (Body Mass 2013-12-22 00:00:00 29.72 kg/m2 [facility] Family Index) Practice BP Systolic 2013-12-22 00:00:00 118 mm[Hg] [facility] Practice Body Weight 2013-12-22 00:00:00 142.2 [lb_av] [facility] Practice BP Diastolic 2013-10-28 00:00:00 79 mm[Hg] [facility] Practice Height 2013-10-28 00:00:00 58 [in_i] [facility] Practice BMI (Body Mass 2013-10-28 00:00:00 29.76 kg/m2 [facility] Family Index) Practice BP Systolic 2013-10-28 00:00:00 125 mm[Hg] [facility] Practice Body Weight 2013-10-28 00:00:00 142.4 [lb_av] [facility] Practice Height 2011-12-31 00:00:00 58 [in_i] [facility] Practice BMI (Body Mass 2011-12-31 00:00:00 28.84 kg/m2 [facility] Family Index) Practice Body Weight 2011-12-31 00:00:00 138 [lb_av] [facility] Practice BP Diastolic 2011-12-31 00:00:00 88 mm[Hg] [facility] Practice BP Systolic 2011-12-31 00:00:00 123 mm[Hg] [facility] Practice BP Diastolic 2011-10-02 00:00:00 78 mm[Hg] [facility] Practice Height 2011-10-02 00:00:00 58 [in_i] [facility] Practice BMI (Body Mass 2011-10-02 00:00:00 29.67 kg/m2 [facility] Family Index) Practice BP Systolic 2011-10-02 00:00:00 118 mm[Hg] [facility] Practice Body Weight 2011-10-02 00:00:00 142 [lb_av] [facility] Practice Procedures Procedure Date / Time Performing Clinician Source Performed X-RAY OF CHEST 2 VIEW 2022-08-16 00:00:00 [facility] SPRIOMETRY: PRE AND POST 2022-08-16 00:00:00 Kian ernst [facility] BRONCHODILATION Practice BREATHING CAPACITY TEST 2022-04-11 00:00:00 [facility] Practice X-RAY OF SHOULDER 2 VIEW 2020-07-01 00:00:00 Kian weatherse [facility] Practice X-RAY OF CLAVICLE 2020-07-01 00:00:00 [facility] X-[facility] CERVICAL SPINE 2 OR 2020-07-01 00:00:00 [facility] [address], sinuses, w/o contrast 2020-05-06 00:00:[address] [facility] [address], sinuses, w/o contrast 2020-01-20 00:00:00 [facility] Caesarean Section 2016-02-26 00:00:00 [facility] Extraction of [place] Tooth [facility] Plan of Care Planned Activity Planned Date Details Comments Source Diagnostic Test 2022-08-16 CBC w/ auto diff [facility] Pending 00:00:00 [code = CBC w/ auto Practice diff] Diagnostic Test 2022-08-16 lipid panel, serum [facility] Pending 00:00:00 [code = lipid Practice panel, serum] Diagnostic Test 2022-08-16 CMP, serum or [facility] siddhartha Pending 00:00:00 plasma [code = CMP, Practice serum or plasma] Diagnostic Test 2022-08-16 TSH, serum or [facility] siddhartha Pending 00:00:00 plasma [code = TSH, Practice serum or plasma] Diagnostic Test 2022-08-16 [facility] 00:[facility]:00 dipstick [code = Practice urinalysis, dipstick] Future Scheduled Test 2022-08-10 COVID-19 VACCINE [facility] 23:16:44 (#1) [code = COVID-19 VACCINE (#1)] Future Scheduled Test 2022-08-[address] [facility] 23:16:44 malignant neoplasm of cervix (procedure) [code = 283552557] Future Scheduled Test 2022-08-10 INFLUENZA VACCINE [facility] 23:16:44 [code = INFLUENZA VACCINE] Future Scheduled Test 2022-04-11 COVID-19 VACCINE [facility] 08:39:38 (#1) [code = COVID-19 VACCINE (#1)] Future Scheduled Test 2022-04-[address] [facility] 08:39:38 malignant neoplasm of cervix (procedure) [code = 564673172] Future Scheduled Test 2022-04-11 INFLUENZA VACCINE [facility] 08:39:38 [code = INFLUENZA VACCINE] Future Scheduled Test 2022-04-11 COVID-19 VACCINE [facility] 08:39:38 (#1) [code = COVID-19 VACCINE (#1)] Future Scheduled Test 2022-04-[address] [facility] 08:39:38 malignant neoplasm of cervix (procedure) [code = 981141127] Future Scheduled Test 2022-04-11 INFLUENZA VACCINE [facility] 08:39:38 [code = INFLUENZA VACCINE] Future Appointment 2022-09-17 Sonja Gillette, [address] [facility] 10:30:00 [facility]; [address], [place] [address] Instructions [facility] Encounters Start End Encounter Admission Attending Care Care Encounter Source Date/Time Date/Time Type Type Clinicians Facility Department ID 2022-08-16 2022-08-16 Outpatient Reddy_M_HOU VFP VFP 800 [facility] 00:00:00 00:00:00 _ 22 Family Practic e 2022-08-16 2022-08-16 Sonja VFP [place] - [id number] V illage 00:00:00 00:00:00 MD Nain: [facility] siddhartha 9055 [facility] [place] [address], _HOU_[facility] [address] , Ph. 2022-07-30 2022-07-30 Outpatient Ramireddy_S VFP VFP 800 2022 [facility] 00:00:00 00:00:00 0617 Family Practic e 2022-07-27 2022-07-27 Outpatient Ramireddy_S VFP VFP 800 2022 [facility] 00:00:00 00:00:00 0603 Family Practic e 2022-07-27 2022-07-27 Outpatient Green_T_WAG VFP VFP 800 2022 [facility] 00:00:00 00:00:00 DNU 0604 Family Practic e 2022-07-25 2022-07-25 Outpatient Ramireddy_S VFP VFP 800 2022 [facility] 00:00:00 00:00:00 0531 Family Practic e 2022-07-25 2022-07-25 Sweeya VFP [place] - [id number] V illage 00:00:00 00:00:00 [place] [facility] Yobani Hernández [facility] : [address], [place] [address] , Ph. 2022-06-22 2022-06-22 Outpatient Ramireddy_S VFP VFP 800 2022 [facility] 00:00:00 00:00:00 0428 Family Practic e 2022-06-16 2022-06-16 Outpatient Ramireddy_S VFP VFP 800 2022 [facility] 00:00:00 00:00:00 0422 Family Practic e 2022-06-16 2022-06-16 Outpatient Ramireddy_S VFP VFP 800 2022 [facility] 00:00:00 00:00:00 0424 Family Practic e 2022-05-18 2022-05-18 Outpatient Ramireddy_S VFP VFP 800 2022 [facility] 00:00:00 00:00:00 0324 Family Practic e 2022-05-18 2022-05-18 Outpatient Ramireddy_S VFP VFP 800 2022 [facility] 00:00:00 00:00:00 0419 Family Practic e 2022-04-11 2022-04-11 Outpatient Ramireddy_S VFP VFP 800 2022 [facility] 00:00:00 00:00:00 0215 Family Practic e 2022-04-11 2022-04-11 Outpatient Green_T_WAG VFP VFP 800 2022 [facility] 00:00:00 00:00:00 DNU 0302 Family Practic e 2022-04-11 2022-04-11 Rehana VFP [place] - [id number] V illage 00:00:00 00:00:00 MD Nina: [facility]hil carl [address] [facility] [place] [facility] [address], [facility] [address] , Ph. 2022-03-22 2022-03-22 Outpatient Ramireddy_S VFP VFP 800 [facility] 00:00:00 00:00:00 0126 Family Practic e 2022-03-22 2022-03-22 Outpatient Green_T_WAG VFP VFP 800 [facility] 00:00:00 00:00:00 DNU 0206 Family Practic e 2022-03-22 2022-03-22 Outpatient Ramireddy_S VFP VFP 800 [facility] 00:00:00 00:00:00 0214 Family Practic e 2022-03-01 2022-03-01 Hermelinda VFP [place] - [id number] V illage 00:00:00 00:00:00 [facility] siddhartha Brito, Medical - Prac tic MD: 9055 MARKEL OHAAR_SMITH_[facility] [address], [place] [address] , Ph. 2022-02-26 2022-02-26 Outpatient Ramireddy_S VFP VFP 800 [facility] 00:00:00 00:00:00 0102 Family Practic e 2022-02-26 2022-02-26 Outpatient Ramireddy_S VFP VFP 800 [facility] 00:00:00 00:00:00 0104 Family Practic e 2022-02-26 2022-02-26 Outpatient Ramireddy_S VFP VFP 800 [facility] 00:00:00 00:00:00 0105 Family Practic e 2022-02-16 2022-02-16 Mary VFP [place] - [id number] V illage 00:00:00 00:00:00 [facility] Family Noel, DYE CAN OPERATOR: Medical - Pra ctic [address] [place] [address] MAYDA_[facility] ([facility]) [address] , Ph. 2022-01-26 2022-01-26 Outpatient Ramireddy_S VFP VFP 800 [facility] 00:00:00 00:00:00 1223 Family Practic e 2021-12-26 2021-12-26 Outpatient Green_T_WAG VFP VFP 800 [facility] 00:00:00 00:00:00 DNU 1101 Family Practic e 2021-12-26 2021-12-26 Rehana VFP [place] - [id number] V illage 00:00:00 00:00:00 MD Nina: [facility] 9055 [place] Medical - Prac [facility] e [address], VM_HOU_[facility] [address] , Ph. 2021-11-25 2021-11-25 Outpatient Ramireddy_S VFP VFP 800 [facility] 00:00:00 00:00:00 1001 Family Practic e 2021-11-23 2021-11-23 Outpatient Green_T_WAG VFP VFP 800 [facility] 00:00:00 00:00:00 DNU 0929 Family Practic e 2021-11-06 2021-11-06 Outpatient Ramireddy_S VFP VFP 800 [facility] 00:00:00 00:00:00 0912 Family Practic e 2021-11-03 2021-11-03 Outpatient Ramireddy_S VFP VFP 800 [facility] 00:00:00 00:00:00 0909 Family Practic e 2021-11-03 2021-11-03 Brian VFP [place] - [id number] V illage 00:00:00 00:00:00 Nikhil [facility] Family DYE CAN OPERATOR: 8810 Medical - Pract ic Darrick OHARA_HOU_Inst[address] jos[address] Dr, od ([facility]) [place] [address] , Ph. 2021-11-01 2021-11-01 Outpatient Ramireddy_S VFP VFP 800 [facility] 00:00:00 00:00:00 0907 Family Practic e 2021-11-01 2021-11-01 Silvina VFP [place] - [id number] V illage 00:00:00 00:00:00 [facility] Darian, Medical - Pract ic PA: 8810 VM_HOU_Inwo joselo [place] od ([facility]) [place] [address] , Ph. 2021-10-31 2021-10-31 Cecilioa Ramireddy_S VFP [place] - 2021 [facility] 00:00:00 00:00:00 [place] [id number] Family Hernández, Medical - [facility] ctic MD: 9055 VM_HOU_Memo joselo Louisa arthur [facility], [address], [place] [address] , Ph. 2021-10-31 2021-10-31 Sweeya VFP [place] - [id number] V illage 00:00:00 00:00:00 [facility] Betty, Medical - Pra ctic MD: 9055 VM_HOU_Memo joselo [address] [facility], [address], [place] [address] , Ph. 2021-10-27 2021-10-27 Outpatient Green_T_WAG VFP VFP [facility] 00:00:00 00:00:00 [facility] 0902 Family Practic e 2021-10-23 2021-10-23 Outpatient Ramireddy_S VFP VFP [facility] 00:00:00 00:00:00 0829 Family Practic e 2021-09-19 2021-09-19 Luis Manuel Green_T_WAG VFP [place] - 2021 [facility] 00:00:00 00:00:00 [facility] 0726 Eulalio y Selina, Medical - Pract tawanda MD: 86670 VM_HOU_Cypr e Camilla [facility] Caceres, [place] [address] , Ph. 2021-09-17 2021-09-17 Nathaly N Ramireddy_S VFP [place] - [facility] 00:00:00 00:00:00 BLAZE Cruz: [facility] 0724 [facility] [address] Medical - Practi c [place] VM_HOU_Cypr e [address] ([facility]) [place] [address] , Ph. 2021-09-16 2021-09-16 Outpatient Ramireddy_S VFP VFP [facility] 05:37:00 05:37:00 0723 Family Practic e 2021-07-18 2021-07-18 Liberty Walker_[facility] VFP 2021 [facility] 00:00:00 00:00:00 MADDY Mann [facility] 0524 Famil y DYE CAN OPERATOR: [id number] Medical - Prac [address] VM_HOU_Cypr e [facility]) [address] , Ph. 2021-07-01 2021-07-01 Mary Walker_AUTUMN VFP [place] 2021 [facility] 00:00:00 00:00:00 Daveycas [facility] 0507 Family Okumu, DYE CAN OPERATOR: [place] [address] VM_HOU_Cypr e Shelton Winters, [facility]) [place] [address] , Ph. 2021-06-02 2021-06-02 Outpatient Ramireddy_S VFP VFP [facility] 08:27:00 08:27:00 0408 Family Practic e 2021-06-01 2021-06-01 Liberty Ramireddy_S VFP 2021 [facility] 00:00:00 00:00:00 Johnathan [facility] 0407 Famil y DYE CAN OPERATOR: [id number] Medical - Prac tic [facility] MAYDA_ALAINAUJosi [facility] [place] [address] , Ph. 2021-05-05 2021-05-05 [facility] VFP [place] 2021 [facility] 00:00:00 00:00:00 MADDY Mann [facility] 0311 Famil y DYE CAN OPERATOR: 82004 Medical - Prac tic [facility] MAYDA_HOUJosi josue [facility] [place] [address] , Ph. 2021-04-07 2021-04-07 Outpatient Ramireddy_S VFP VFP [facility] 05:57:00 05:57:00 0211 Family Practic e 2021-04-062021-04-06 Liberty Ramireddy_S VFP - 2021 [facility] 00:00:00 00:00:00 Johnathan, [facility] 0210 Famil y DYE CAN OPERATOR: 10857 Medical - [facility] tic Anais MAYDA_SMITH_Cyndy e Tacho Caceresromy (WAG) [place] [address] , Ph. 2020-11-02 2020-11-02 Outpatient Ramireddy_S VFP VFP [facility] 03:41:00 03:41:00 0908 Family Practic e 2020-10-27 2020-10-27 Amina Ramireddy_S VFP 2020 [facility] 00:00:00 00:00:00 [facility] 0902 Famil y El-Diqran, [facility] PA: 9055 VM_HOU_Memo e [place] [facility], [facility] [address] [address] , Ph. 2020-08-02 2020-08-02 Outpatient Green_T_WAG VFP VFP [facility] 02:57:00 02:57:00 0608 Family Practic e 2020-07-06 2020-07-06 Outpatient Ramireddy_S VFP VFP [facility] 11:10:00 11:10:00 0512 Family Practic e 2020-07-01 2020-07-01 Amina Ramireddy_S VFP 2020 [facility] 00:00:00 00:00:00 [facility] 0507 Famil y El-Diqleticia, [facility] PA: 9055 VM_HOU_Memo e [place] [facility], [address], [place] [address] , Ph. 2020-06-23 2020-06-23 Outpatient Green_T_WAG VFP VFP [facility] 03:49:00 03:49:00 0429 Family Practic e 2020-06-21 2020-06-21 Amber Walden Green_T_WAG VFP 2020 [facility] 00:00:00 00:00:00 [facility] 0427 Famil y MD: 8810 Medical - Pract ic Darrick VM_HOU_Inleelao e , od ([facility]) [place] [address] , Ph. 2020-06-20 2020-06-20 Outpatient Green_T_WAG VFP VFP [facility] 12:12:00 12:12:00 0426 Family Practic e 2020-06-18 2020-06-18 Outpatient Ramireddy_S VFP VFP [facility] 10:55:00 10:55:00 0424 Family Practic e 2020-05-26 2020-05-26 Outpatient Ramireddy_S VFP VFP [facility] 04:12:00 04:12:00 0401 Family Practic e 2020-05-21 2020-05-21 Porchae B Green_T_WAG VFP 8001 [facility] 00:00:00 [facility]:00[facility] 0327 Famil y DYE CAN OPERATOR: 6122 Medical - Pract ic [place] VM_HOU_East e , [place] [address], ([facility]) [place] [address] , Ph. 2020-05-13 2020-05-13 Outpatient Ramireddy_S VFP VFP [facility] 02:15:00 02:15:00 0319 Family Practic e 2020-05-06 2020-05-06 Nathaly N Green_T_WAG VFP [facility] 00:00:00 00:00:00 Anthony, DYE CAN OPERATOR: [address] [address] Medical - Practi c [place] VM_HOU_Cypr [address], ([facility]) [place] [address] , Ph. 2020-03-30 2020-03-30 Outpatient Ramireddy_S VFP VFP [facility] 01:43:00 01:43:00 0203 Family Practic e 2020-03-24 2020-03-24 Outpatient Lemming_S VFP VFP [facility] 10:35:00 10:35:00 0128 Family Practic e 2020-03-21 2020-03-21 Amina Lemming_S VFP [place] - [id number] [facility] 00:00:00 00:00:00 [facility] 0125 Famil y Efren, Medical - Pra ctic PA: 9055 VM_HOU_Memo joselo [address] [facility], [facility] [address] [address] , Ph. 2020-02-06 2020-02-06 Outpatient Lemming_S VFP VFP [facility] 10:09:00 10:09:00 1212 Family Practic e 2020-01-26 2020-01-26 Outpatient Lemming_S VFP VFP [facility] 12:17:00 12:17:00 1201 Family Practic e 2020-01-22 2020-01-22 Outpatient Lemming_S VFP VFP [facility] 01:59:00 01:59:00 1127 Family Practic e 2020-01-20 2020-01-20 Susana Lem[place]_S VFP [place] - [id number] [facility] 00:00:00 00:00:00 [facility] 1125 iTno morales, DYE CAN OPERATOR: Medical - Prac tic 9055 Louis[place] OHARA_HOU_Memo e [address] [address] , Ph. 2019-11-09 2019-11-09 Outpatient Lemming_S VFP VFP [facility] 01:23:00 01:23:00 0914 Family Practic e 2019-11-05 2019-11-05 [place] Lemming_S VFP [place] - [id number] [place] [address] 00:00:00 00:00:00 Clover, [facility] 0910 Famil y PA: 9055 Medical - Pract ic [place] OHARA_HOU_Memo e [address] [address] , Ph. 2019-08-26 2019-08-26 Outpatient Lemming_S VFP VFP [facility] 11:20:00 11:20:00 0701 Family Practic e 2019-08-17 2019-08-17 Outpatient Lemming_S VFP VFP [facility] 07:32:00 07:32:00 0622 Family Practic e 2019-08-13 2019-08-13 Liv Lemming_S VFP [place] - [id number] [facility] 00:00:00 00:00:00 [facility] 06[facility] Famil y PA: 9055 Medical - Pract ic [place] VM_HOU_Memo e [facility] [address] [address] , Ph. 2019-04-11 2019-04-11 Outpatient Lemming_S VFP VFP [facility] 02:45:00 02:45:00 0215 Family Practic e 2019-03-16 2019-03-16 Outpatient Lemming_S VFP VFP [facility] 03:05:00 03:05:00 0120 Family Practic e 2019-03-12 2019-03-12 [place] Lem[place] - [phone] [facility] 00:00:00 00:00:00 [facility] 0116 Famil y PA: 9055 Medical - Pract ic [place] VM_HOU_Memo e [address] [address] , Ph. 2018-12-31 2018-12-31 Outpatient Lemming_S VFP VFP [address] [facility] 10:37:00 10:37:00 1106 Family Practic e 2017-05-28 2017-05-28 [place] - [address] [facility] 00:00:00 00:00:00 [facility] 0403 Family Oropeza, Family Practic DO: [id number] Practice - e [place] [facility] [address] [address] , Ph. 2016-02-09 2016-02-09 [place] - [phone] [facility] 00:00:00 00:00:00 [facility] 1215 Fam siddhartha MORTGAGE PROCESSOR: 9055 Family Practi c [place] [facility], [facility] [address], [place] [address] , Ph. 2016-01-21 2016-01-21 [place] [facility] [place] - [phone] [facility] 00:00:00 00:00:00 MD Duane: [facility] 1126 Fam siddhartha 9055 [place]a [facility] [place], [facility] - e [address], [facility] [address] , Ph. 2015-12-31 2015-12-31 [place] [facility] [place] - [phone] [facility] 00:00:00 00:00:00 Cu, PA-C: [facility] 1105 Fami ly 9055 [place] [facility], [facility] - e [address], [facility] [address] , Ph. Results Test Description Test Time Test Comments Results Result Comments Source Urinalysis macro (dipstick) panel - Urine 2022-08-16 13:04:0 0 Test Item Value Reference Range Interpretation Comme nts Interpretation UA test performed using: Automated device/analyzer ( [id number]) (test code = Interpretation UA test performed using:) Interpretation Color (test code = Yellow Interpretation Color) Interpretation Clarity (test code = Clear Interpretation Clarity) Interpretation Glucose (mg/dL) (test code Negative = Interpretation Glucose (mg/dL)) Interpretation Bilirubin (test code = Negative Interpretation Bilirubin) Interpretation Ketone (mg/dL) (test code = Negative Interpretation Ketone (mg/dL)) Interpretation Specific [place] (test code 1.015 = Interpretation Specific [place]) Interpretation Occult Blood (test code = Negative Interpretation Occult Blood) Interpretation pH (test code = 8.5 Interpretation pH) Interpretation Protein (test code = 30 Interpretation Protein) Interpretation Urobilinogen (test code = 4 Interpretation Urobilinogen) Interpretation Nitrites (test code = Negative Interpretation Nitrites) Interpretation Leukocytes (test code = Negative Interpretation Leukocytes) [facility] W Auto Differential panel - [id number] 00:00:00 Test Item Value Reference Range Interpretation Comments WBC (test code = WBC) 7.49 x10*3/?L 4.00-11.00 RBC (test code = RBC) 4.77 10*12/L 3.93-5.22 hemoglobin (test code = 13.50 g/dL 11.20-15.70 hemoglobin) hematocrit (test code = 41.4 % 34.1-44.9 hematocrit) MCV (test code = MCV) 86.8 fL 80.0-100.0 MCH (test code = MCH) 28.3 pg 25.6-32.2 MCHC (test code = MCHC) 32.6 g/dL 32.2-35.5 platelet count (test code = 301.0 k/uL 150.0-400.0 platelet count) RDW-SD (test code = RDW-SD) 42.2 fL 36.4-46.3 MPV (test code = MPV) 12.2 fL 7.5-11.5 H neut% (test code = neut%) 61.1 % 34.0-71.1 lymph% (test code = lymph%) 29.1 % 19.3-51.7 mon% (test code = mon%) 5.1 % 4.7-12.5 eos% (test code = eos%) 3.7 % 0.7-5.8 baso% (test code = baso%) 0.7 % 0.1-1.2 neut# (test code = neut#) 4.6 x10*3/?L 1.6-6.1 lymph# (test code = lymph#) 2.2 x10*3/?L 1.2-3.7 mon# (test code = mon#) 0.4 x10*3/?L 0.2-0.9 eos# (test code = eos#) 0.28 x10*3/?L 0.04-0.36 baso# (test code = baso#) 0.05 x10*3/?L 0.01-0.08 [facility] - Serum or Plasma 2022-08-16 00:00:00 Test Item Value Reference Range Interpretation Comments glucose (test code = glucose) 90 mg/dL 70-99 creatinine (test code = 0.71 mg/dL 0.57-1.11 creatinine) BUN (test code = BUN) 11.9 mg/dL 7.0-25.0 eGFR (test code = eGFR) >60 sodium (test code = sodium) 143 mEq/L 135-145 potassium (test code = potassium) 4.0 mEq/L 3.5-5.3 CO2 (test code = CO2) 26.1 mmol/L 20.0-32.0 chloride (test code = chloride) 109 mmol/L 98-110 anion gap (test code = anion gap) 8 calc calcium (test code = calcium) 9.9 mg/dL 8.4-10.4 total protein (test code = total 7.5 g/dL 6.1-8.2 protein) albumin (test code = albumin) 4.5 g/dL 3.4-5.1 total bilirubin (test code = 0.7 mg/dL 0.2-1.2 total bilirubin) alk phos (test code = alk phos) 56 unit/L 40-150 ALT (test code = ALT) 24 U/L 0-55 AST (test code = AST) 24 U/L 5-34 [facility] panel - Serum or [id number] 00:00:00 Test Item Value Reference Range Interpretation Comments triglyceride (test code = 182 mg/dL <150 H triglyceride) cholesterol (test code = 188 mg/dL <200 cholesterol) HDL (test code = HDL) 49 mg/dL L VLDL (calculated) (test code = VLDL 36 mg/dL (calculated)) cholesterol/HDL ratio (test code = 3.8 mg/dL cholesterol/HDL ratio) Cholesterol in LDL [Mass/volume] in 103 mg/dL <130 Serum or Plasma (test code = 2089-1) non-HDL cholesterol (calculated) 139 mg/dL <160 (test code = non-HDL cholesterol (calculated)) [facility] [Units/volume] in Serum or [id number] 00:00:00 Test Item Value Reference Range Interpretation Comments TSH (test code = TSH) 0.608 uIU/mL 0.350-4.940 [facility] reaction wheal [Diameter] --3 days post dose kerrie tuberculin [id number] 15:42:02 Test Item Value Reference Range Interpretation Comments TB (test code = TB) negative [facility] wheal [Diameter] --3 days post dose kerrie tuberculin [id number] 15:42:02 Test Item Value Reference Range Interpretation Comments TB (test code = TB) negative [facility] strep group A, [id number] 11:05:00 Test Item Value Reference Range Interpretation Comments Strep (test code = Strep) negative [facility] A, [id number] 11:05:00 Test Item Value Reference Range Interpretation Comments Strep (test code = Strep) negative [facility] virus A and B and SARS-CoV+SARS-CoV-2 (COVID- 19) Ag panel - Upper respiratory specimen by Rapid [id number] 11:04:00 Test Item Value Reference Range Interpretation Comments Influenza A (test code = Presumptive Negative Influenza A) Influenza B (test code = Presumptive Negative Influenza B) SARS-CoV-2 Antigen (test Presumptive Negative code = SARS-CoV-2 Antigen) [facility] A and B and SARS-CoV+SARS-CoV-2 (COVID- 19) Ag panel - Upper respiratory specimen by Rapid [id number] 11:04:00 Test Item Value Reference Range Interpretation Comments Influenza A (test code = Presumptive Negative Influenza A) Influenza B (test code = Presumptive Negative Influenza B) SARS-CoV-2 Antigen (test Presumptive Negative code = SARS-CoV-2 Antigen) [facility] [id number] 00:00:00 Test Item Value Reference Range Interpretation Comments test name: (test code = test HCG, ql, urine name:) test code: (test code = test 396xrga code:) client contact: (test code = vida jerald client contact:) report always message signature (test code = report always message signature) comment (test code = comment) [facility], [id number] 00:00:00 Test Item Value Reference Range Interpretation Comments HCG, ql, urine (test code = HCG, ql, tnp urine) [facility] vaginosis and vaginitis DNA panel - Vaginal fluid by Probe with signal [id number] 00:00:00 Test Item Value Reference Range Interpretation [...] not detected code = C. parapsilosis, DNA) [facility]horiogonadotropin ( test) [Presence] in Serum or [id number] 00:00:00 Test Item Value Reference Range Interpretation Comments HCG, total, ql (test code = HCG, total, tnp ql) [facility] [id number] 00:00:00 Test Item Value Reference Range Interpretation Comments extra tube received (test code = extra tube received) specimen type received (test code = urine specimen type received) [facility] complete panel - [id number] 00:00:00 Test Item Value Reference Range Interpretation [...] See_Comment A [Auto mated message] The system Scirra generated this result transmitted ref erence range: < or = 5 . The reference range was not used to int erpret this result as normal/abnormal . RBC (test code = RBC) none seen See_Comment [Auto mated message] The system Scirra generated this result transmitted ref erence range: [...] seen none seen code = hyaline cast) [facility] identified in Urine by [id number] 00:00:00 Test Item Value Reference Range Interpretation Comments culture, urine, routine (test code = see note culture, urine, routine) [facility]inal[facility] macro (dipstick) panel - [id number] 17:44:00 Test Item Value Reference Range Interpretation Comments Color Color (test code = Color yellow Color) Color Appearance (test code = Color clear Appearance) Color Glucose (test code = Color negative Glucose) Color Bilirubin (test code = Color negative Bilirubin) Color Ketones (test code = Color negative Ketones) Color Specific [place] (test code = 1.025 Color Specific [place]) Color Blood (test code = Color large Blood) Color PH (test code = Color PH) 7.0 Color Protein (test code = Color 30 Protein) Color Urobilinogen (test code = 0.2 Color Urobilinogen) Color Nitrites (test code = Color negative Nitrites) Color Leukocytes (test code = Color negative Leukocytes) [facility] identified in Urine by [id number] 21:07:00 Test Item Value Reference Range Interpretation Comments urine culture, routine (test final report code = urine culture, routine) result 1 (test code = result 1) no growth [facility] identified in Urine by [id number] 00:00:00 Test Item Value Reference Range Interpretation Comments urine culture, routine (test final report code = urine culture, routine) result 1 (test code = result 1) no growth [facility] identified in Urine by [id number] 00:00:00 Test Item Value Reference Range Interpretation Comments urine culture, routine (test final report A code = urine culture, routine) result 1 (test code = result escherichia coli A 1) antimicrobial susceptibility comment (test code = antimicrobial susceptibility) [facility]lamydia trachomatis+Neisseria gonorrhoeae rRNA [Presence] in Urine by DNA [id number] 00:00:00 Test Item Value Reference Range Interpretation Comments chlamydia trachomatis, NOEL (test negative negative code = chlamydia trachomatis, NOEL) neisseria gonorrhoeae, NOEL (test negative negative code = neisseria gonorrhoeae, NOEL) please note: (test code = please comment note:) [facility]atitis C virus Ab [Units/volume] in [id number] 00:00:00 Test Item Value Reference Range Interpretation Comments hep C virus Ab (test code = hep C virus <0.1 0.0-0.9 Ab) [facility] Ab [Presence] in Serum by [id number] 00:00:00 Test Item Value Reference Range Interpretation Comments RPR (test code = RPR) non reactive non reactive [facility]HIV-1/2 Ag and abs, 4TH gen. w/rflx ([id number] 00:00:00 Test Item Value Reference Range Interpretation Comments HIV screen 4TH generation wrfx non reactive non reactive (test code = HIV screen 4TH generation wrfx) [facility]
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
[2022-08-18 06:54] VITALS: BP 131/92; O2SAT 99
[2022-08-18 23:04] LABS: Hepatitis B Core IgM Nonreactive (Nonreactive); Hepatitis B surface AG Interp. Nonreactive (Nonreactive); Hepatitis C Virus Ab Nonreactive (Nonreactive)
== END 2022-08-18 06:50 | disposition home or self-care (01) ==
LOC: ER 05:29
DX: Z77.21 Contact with and (suspected) exposure to potentially hazardous body fluids (principal); S50.812A Abrasion of left forearm, initial encounter; Z88.5 Allergy status to narcotic agent
CPT/HCPCS: 36415; 80074; 87389; 99282

== ENCOUNTER 2023-06-25 05:59 | Emergency (ER) | payer SELFPAY ==
[2023-06-25] MEDS ORDERED: KETOROLAC 30 MG/ML INJ ONE (06:18)
[2023-06-25] MEDS ORDERED: METOCLOPRAMIDE 10 MG/2mL INJ ONE (06:19)
[2023-06-25] MEDS ORDERED: DIPHENHYDRAMINE 50 MG/ML VIAL ONE ×2 (06:19→07:23)
[2023-06-25] MEDS ORDERED: NA CHLORIDE 0.9% 1,000 ML ONE (06:19)
[2023-06-25] MEDS ORDERED: MORPHINE 4 MG/ML SYR ONE (07:23)
--- NOTE | 2023-06-25 08:27 | EDPHYS ---
Physician Documentation [facility] Name: Genie De Anda Age: 32 yrs Sex: Female : 1990 Arrival Date: 06/25/2023 Time: 05:59 Bed 10 Private MD: ED Physician Blanco Santa HPI: 06/24 06:09 This 32 yrs old Female presents to ER via Unassigned with complaints of sp4 Headache. 21:25 32-year-old female with known history of migraines presented with worsening headache sp4 for the past 5 days. This is associated with vomiting. . 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 - Infectious Disease History:: Denies. - Social history:: Smoking status: Patient denies any tobacco usage or history of. Patient/guardian denies using alcohol, street drugs. - Family history:: not pertinent. ROS: 21:25 Constitutional: Negative for fever, chills, and weight loss, positive persistent sp4 migraine headache 21:25 All other systems are negative, Exam: 21:25 Constitutional: This is a well developed, well nourished patient who is awake, alert, sp4 and in no acute distress. Head/Face: Normocephalic, atraumatic. Eyes: Pupils equal round and reactive to light, extra-ocular motions intact. Lids and lashes normal. Conjunctiva and sclera are not injected. Cornea within normal limits. Periorbital areas with no swelling, redness, or edema. ENT: Nares patent. No nasal discharge, no septal abnormalities noted. Tympanic membranes are normal and external auditory canals are clear. Oropharynx with no redness, swelling, or masses, exudates, or evidence of obstruction, uvula midline. Mucous membranes moist. Neck: Trachea midline, no thyromegaly or masses palpated, and no cervical lymphadenopathy. Supple, full range of motion without nuchal rigidity, or vertebral point tenderness. Chest/axilla: Normal chest wall appearance and motion. Nontender with no deformity. No lesions are appreciated. Cardiovascular: Regular rate and rhythm with a normal S1 and S2. No gallops, murmurs, or rubs. Normal PMI, no JVD. No pulse deficits. Respiratory: Lungs have equal breath sounds bilaterally, clear to auscultation and percussion. No rales, rhonchi or wheezes noted. No increased work of breathing, no retractions or nasal flaring. Abdomen/GI: Soft, with normal bowel sounds. No distension or tympany. No guarding or rebound. No evidence of tenderness throughout. Back: No spinal tenderness. No costovertebral tenderness. Skin: Warm, dry with normal turgor. Normal color with no rashes, no lesions, and no evidence of cellulitis. MS/ Extremity: Pulses equal, no cyanosis. Neurovascular intact. Full, normal range of motion. Neuro: Awake and alert, GCS 15, oriented to person, place, time, and situation. Cranial nerves II-XII grossly intact. Motor strength 5/5 in all extremities. Sensory grossly intact. Psych: Awake, alert, with orientation to person, place and time. Behavior, mood, and affect are within normal limits Vital Signs: 06:11 BP 123 / 87; Pulse 90; Resp 17 S; Temp 98.2(O); Pulse Ox 100% on R/A; Weight 58.97 kg lg3 (R); Height 4 ft. 10 in. (R); Pain 7/10; 07:32 BP 108 / 64; Pulse 71; Resp 16; Pulse Ox 100% on R/A; Pain 5/10; iw 06:11 Body Mass Index 27.17 (58.97 kg, 147.32 cm) lg3 06:11 Pain Scale: Adult lg3 07:32 Pain Scale: Adult iw Noris Coma Score: 21:25 Eye Response: spontaneous(4). Motor Response: obeys commands(6). Verbal Response: sp4 oriented(5). Total: 15. 21:27 Eye Response: spontaneous(4). Motor Response: obeys commands(6). Verbal Response: sp4 oriented(5). Total: 15. MDM: 06:09 Patient medically screened. sp4 21:27 Differential diagnosis: migraine, sinusitis, vasomotor headache. Data reviewed: lab sp4 test result(s), UPT: negative. ED course: Patient did obtain relief after medications in the emergency room. Migraine cocktail was given. Patient will be prescribed Fioricet as needed headache. . 06/24 06:08 Order name: Test, Urine; Complete Time: 21:27 sp4 06/24 06:08 Order name: Saline Lock; Complete Time: 06:30 sp4 Administered Medications: 06:30 Drug: diphenhydrAMINE IVP 25 mg IVP once Route: IVP; Site: left wrist; lg3 06:30 Drug: NS 0.9% IV 1000 ml IV at 1 bolus Per protocol; 1000 mL bolus Route: IV; Rate: 1 lg3 bolus; Site: left wrist; 06:31 Drug: Ketorolac IVP 30 mg IVP once Route: IVP; Site: left wrist; lg3 06:31 Drug: metoCLOPramide IVP 10 mg IVP once; over 1 to 2 minutes Route: IVP; Site: left lg3 wrist; 07:31 Drug: morphine IVP or IV 4 mg IVP once over 4 mins Route: IVP; Infused Over: 4 mins; iw Site: left wrist; 07:31 Drug: diphenhydrAMINE IVP 25 mg IVP once Route: IVP; Site: left wrist; iw Disposition Summary: 06/25/23 08:27 Discharge Ordered Notes: Location: Home sp4 Problem: new sp4 Symptoms: have improved sp4 Condition: Stable sp4 Diagnosis - Migraine without aura, intractable sp4 Followup: sp4 - With: Private Physician - When: 7 - 10 days - Reason: Recheck today's complaints Discharge Instructions: - Discharge Summary Sheet sp4 - Migraine Headache sp4 Prescriptions: - Fioricet 50-300-40 mg Oral capsule - take 1 capsule ORAL route every 6 hours PRN headache; 30 capsule; Refills: 0, sp4 Product Selection Permitted Signatures: Dispatcher [employer] Mya Hdz RN RN iw Meka Herrera RN RN lg3 Blanco Santa MD MD sp4
--- NOTE | 2023-06-25 08:27 | ER ---
Nurse's Notes [facility] Name: Genie De Anda Age: 32 yrs Sex: Female : 1990 Arrival Date: 06/25/2023 Time: 05:59 Bed 10 Private MD: Diagnosis: Migraine without aura, intractable Presentation: 06/24 06:11 Chief complaint: Patient states: migraine X4 days and worsening. Coronavirus screen: lg3 Client denies travel out of the [place] in the last 14 days. At this time, the client does not indicate any symptoms associated with coronavirus-19. Ebola Screen: No symptoms or risks identified at this time. Initial Sepsis Screen: Does the patient meet any 2 criteria? No. Patient's initial sepsis screen is negative. Does the patient have a suspected source of infection? No. Patient's initial sepsis screen is negative. Risk Assessment: Do you want to hurt yourself or someone else? Patient reports desire/thoughts of hurting themselves or someone else. Provider notified. Onset of symptoms was June 22, 2023. 06:11 Method Of Arrival: Ambulatory 3 06:11 Acuity: KATHY 3 lg3 Triage Assessment: 06:12 Headache History: The patient has had previous headaches and this one is similar to 3 previous episodes. General: Appears in no apparent distress. uncomfortable, Behavior is calm, cooperative. Pain: Complains of pain in head Pain does not radiate. Pain currently is 7 out of 10 on a pain scale. Pain began 2-3 days ago. Also complains of decreased appetite, nausea, photophobia. EENT: No deficits noted. No signs and/or symptoms were reported regarding the EENT system. Neuro: No deficits noted. Huddleston Agitation-Sedation Scale (RASS): 0 - Alert and Calm Level of Consciousness is awake, alert, obeys commands, Oriented to person, place, time, situation. Cardiovascular: No deficits noted. Denies chest pain, shortness of breath, Capillary refill < 3 seconds Clubbing of nail beds is absent JVD is absent Patient's skin is warm and dry. Respiratory: No deficits noted. Airway is patent Respiratory effort is even, unlabored, Respiratory pattern is regular, symmetrical. GI: No deficits noted. Abdomen is round non-distended, Reports diarrhea, nausea. : No deficits noted. No signs and/or symptoms were reported regarding the genitourinary system. Derm: No deficits noted. No signs and/or symptoms reported regarding the dermatologic system. Skin is intact, is healthy with good turgor, Skin is dry, Skin is normal, Skin temperature is warm. Musculoskeletal: No deficits noted. No signs and/or symptoms reported regarding the musculoskeletal system. Circulation, motion, and sensation intact. Range of motion: intact in all extremities. 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 - Infectious Disease History:: Denies. - Social history:: Smoking status: Patient denies any tobacco usage or history of. Patient/guardian denies using alcohol, street drugs. - Family history:: not pertinent. Screenin:14 [facility] ED Fall Risk Assessment (Adult) History of falling in the last 3 months, lg3 including since admission No falls in past 3 months (0 pts) Confusion or Disorientation No (0 pts) Intoxicated or Sedated No (0 pts) Impaired Gait No (0 pts) Mobility Assist Device Used No (0 pt) Altered Elimination No (0 pt) Score/Fall Risk Level 0 - 2 = Low Risk Oriented to surroundings, Maintained a safe environment, Educated pt \T\ family on fall prevention, incl call for assistance when getting out of bed, Assessed \T\ reinforced patient's understanding of fall precautions. Abuse screen: Denies threats or abuse. Denies injuries from another. Nutritional screening: No deficits noted. Tuberculosis screening: No symptoms or risk factors identified. Assessment: 06:14 General: see triage assessment. Pain: Complains of pain in head. lg3 07:32 Reassessment: Patient appears in no apparent distress at this time. Patient and/or iw family updated on plan of care and expected duration. Pain level reassessed. Patient is alert, oriented x 3, equal unlabored respirations, skin warm/dry/pink. pain is 5/10, improved from prior assessment. 08:06 Reassessment: Patient appears in no apparent distress at this time. Patient and/or iw family updated on plan of care and expected duration. Pain level reassessed. Patient is alert, oriented x 3, equal unlabored respirations, skin warm/dry/pink. Patient states feeling better. Patient states symptoms have improved. Vital Signs: 06:11 BP 123 / 87; Pulse 90; Resp 17 S; Temp 98.2(O); Pulse Ox 100% on R/A; Weight 58.97 kg lg3 (R); Height 4 ft. 10 in. (R); Pain 7/10; 07:32 BP 108 / 64; Pulse 71; Resp 16; Pulse Ox 100% on R/A; Pain 5/10; iw 06:11 Body Mass Index 27.17 (58.97 kg, 147.32 cm) lg3 06:11 Pain Scale: Adult lg3 07:32 Pain Scale: Adult iw Berne Coma Score: 21:25 Eye Response: spontaneous(4). Motor Response: obeys commands(6). Verbal Response: sp4 oriented(5). Total: 15. 21:27 Eye Response: spontaneous(4). Motor Response: obeys commands(6). Verbal Response: sp4 oriented(5). Total: 15. ED Course: 06:01 Patient arrived in ED. [email or web address] 06:08 Blanco Santa MD is Attending Physician. sp4 06:12 Triage completed. lg3 06:12 Arm band placed on right wrist. lg3 06:14 Patient has correct armband on for positive identification. lg3 06:30 Meka Herrera RN is Primary Nurse. lg3 06:30 Inserted saline lock: 22 gauge in left wrist, using aseptic technique. lg3 07:33 Primary Nurse role handed off by Meka Herrera RN iw 07:33 Mya Pink RN is Primary Nurse. iw Administered Medications: 06:30 Drug: diphenhydrAMINE IVP 25 mg IVP once Route: IVP; Site: left wrist; lg3 06:30 Drug: NS 0.9% IV 1000 ml IV at 1 bolus Per protocol; 1000 mL bolus Route: IV; Rate: 1 lg3 bolus; Site: left wrist; 06:31 Drug: Ketorolac IVP 30 mg IVP once Route: IVP; Site: left wrist; lg3 06:31 Drug: metoCLOPramide IVP 10 mg IVP once; over 1 to 2 minutes Route: IVP; Site: left lg3 wrist; 07:31 Drug: morphine IVP or IV 4 mg IVP once over 4 mins Route: IVP; Infused Over: 4 mins; iw Site: left wrist; 07:31 Drug: diphenhydrAMINE IVP 25 mg IVP once Route: IVP; Site: left wrist; iw Outcome: 08:27 Discharge ordered by MD. duarte 08:40 Patient left the ED. iw Signatures: Mya Pink RN RN iw Meka Herrera RN RN lg3 Sujey [id number] Blanco Santa MD MD sp4
[2023-06-25 08:46] LABS: Specific Gravity < 1.005 (1.005-1.030)
[2023-06-25 09:05] VITALS: BP 108/64; TEMP 98.2; O2SAT 100
== END 2023-06-25 08:40 | disposition home or self-care (01) ==
LOC: ER 05:59
DX: G43.019 Migraine without aura, intractable, without status migrainosus (principal)
CPT/HCPCS: 81025; 96374; 96375; 99284; J1200; J2765; J7030